=== PATIENT | male | born 1995 | race Caucasian/White ===

== ENCOUNTER 2018-06-24 12:37 | Inpatient (IN) | payer BC ==
[2018-06-24] MEDS ORDERED: NA CHLORIDE 0.9% 1,000 ML ONE ×3 (12:50→14:46)
[2018-06-24 12:58] LABS: Absolute Lymphocytes (CBC) 1.9 K/uL (0.7-4.9); Absolute Monocytes 0.6 K/uL (0.1-1.3); Absolute Neutrophil 8.3 K/uL (1.8-8.0); Basophils % 0.1 % (0-1.3); Eosinophils % 0.1 % (0-4.4); Hematocrit 45.1 % (39.6-49.0); Lymphocytes % 17.6 % (15.3-44.8); MCH 30.7 pg (27.0-35.0); MCV 93.4 fL (80-100); MPV 8.4 fL (7.6-11.3); Monocytes % 5.3 % (3.3-12.3); RBC Red Blood Cell Count 4.83 M/uL (4.33-5.43)
[2018-06-24 13:16] LABS: Arterial Blood Carboxyhemoglob 1.2 % (0-1.5); Blood Gas Oxyhemoglobin 94.3 % (94-97); Blood O2 Saturation 96.8 % (92-98.5)
[2018-06-24 13:31] LABS: ALT/SGPT 17 U/L (12-78); AST/SGOT 16 U/L (15-37); Albumin 4.4 g/dL (3.4-5.0); Alkaline Phosphatase 124 U/L (45-117); Amylase Level 13 U/L (25-115); BUN Blood Urea Nitrogen 16 mg/dL (7-18); Bilirubin Direct < 0.1 mg/dL (0-0.2); Bilirubin Total 0.7 mg/dL (0.2-1.0); Lipase 40 U/L (73-393); Potassium 4.8 mmol/L (3.5-5.1); Protein, Total 8.3 g/dL (6.4-8.2); Sodium Level 137 mmol/L (136-145)
[2018-06-24 13:38] LABS: Bicarbonate 8 mmol/L (21-32)
[2018-06-24 13:39] LABS: Glucose Level 466 mg/dL (74-106)
[2018-06-24] MEDS ORDERED: MORPHINE 4 MG/ML SYR ONE (13:39)
[2018-06-24] MEDS ORDERED: ONDANSETRON 4 MG/2 ML VIAL ONE (13:39)
[2018-06-24] MEDS ORDERED: INSULIN -REGULAR HUMAN 100 UNIT in NA CHLORIDE 0.9% 100 ML IV SCH ×2 (14:00→17:06)
--- NOTE | 2018-06-24 14:05 | RAD REPORT ---
EXAM DESCRIPTION: Tomasz Single View06/24/2018 1:50 pm CLINICAL HISTORY: Chest pain COMPARISON: December 2017 FINDINGS: The lungs appear clear of acute infiltrate. The heart is normal size IMPRESSION: No acute abnormalities displayed
--- NOTE | 2018-06-24 14:26 | EDPHYS ---
Physician Documentation [facility] Name: Frandy Bro Age: 22 yrs Sex: Male : 1995 Arrival Date: 06/24/2018 Time: 12:43 Bed 2 Private MD: ED Physician Matthew Zepeda HPI: 06/24 13:01 This 22 yrs old Male presents to ER via EMS with complaints of hyperglycemia, kb n/v. 13:01 The patient or guardian reports hyperglycemia, that was potentially precipitated by no kb particular event, Treatment prior to arrival includes: taking additional insulin. Onset: The symptoms/episode began/occurred yesterday. Associated signs and symptoms: Pertinent positives: nausea, vomiting. Current symptoms: In the emergency department the patient's symptoms are unchanged from the initial presentation. The patient has experienced similar episodes in the past, a few times. The patient has not recently seen a physician. Pt states he took a nap yesterday and woke up feeling bad. States he has been sleeping a lot since then. Took insulin because his sugar has been reading high since yesterday, but it doesn't seem to be going down. Reports he has been in DKA before but he feels worse than he did then. Historical: - Allergies: 12:58 No Known Allergies; ss - PMHx: 12:58 Diabetes - IDDM; ss - PSHx: 12:58 None; ss - Immunization history:: Adult Immunizations unknown. - Social history:: Smoking status: Patient/guardian denies using tobacco, Patient/guardian denies using street drugs. - Ebola Screening: : Patient denies exposure to infectious person Patient denies travel to an Ebola-affected area in the 21 days before illness onset. ROS: 13:00 ENT: Negative for injury, pain, and discharge, Neck: Negative for injury, pain, and kb swelling, Cardiovascular: Negative for chest pain, palpitations, and edema, Respiratory: Negative for shortness of breath, cough, wheezing, and pleuritic chest pain, Back: Negative for injury and pain, : Negative for injury, bleeding, discharge, and swelling, MS/Extremity: Negative for injury and deformity, Skin: Negative for injury, rash, and discoloration, Neuro: Negative for headache, weakness, numbness, tingling, and seizure. 13:00 Constitutional: Positive for fatigue, malaise. 13:00 Abdomen/GI: Positive for nausea and vomiting. 13:00 Endocrine: Positive for hyperglycemia. Exam: 13:00 Head/Face: Normocephalic, atraumatic. ENT: Nares patent. No nasal discharge, no kb septal abnormalities noted. Tympanic membranes are normal and external auditory canals are clear. Oropharynx with no redness, swelling, or masses, exudates, or evidence of obstruction, uvula midline. Mucous membranes moist. Neck: Trachea midline, no thyromegaly or masses palpated, and no cervical lymphadenopathy. Supple, full range of motion without nuchal rigidity, or vertebral point tenderness. No Meningismus. Chest/axilla: Normal chest wall appearance and motion. Nontender with no deformity. No lesions are appreciated. Cardiovascular: Regular rate and rhythm with a normal S1 and S2. No gallops, murmurs, or rubs. Normal PMI, no JVD. No pulse deficits. Respiratory: Lungs have equal breath sounds bilaterally, clear to auscultation and percussion. No rales, rhonchi or wheezes noted. No increased work of breathing, no retractions or nasal flaring. Abdomen/GI: Soft, non-tender, with normal bowel sounds. No distension or tympany. No guarding or rebound. No evidence of tenderness throughout. Skin: Warm, dry with normal turgor. Normal color with no rashes, no lesions, and no evidence of cellulitis. MS/ Extremity: Pulses equal, no cyanosis. Neurovascular intact. Full, normal range of motion. Neuro: Awake and alert, GCS 15, oriented to person, place, time, and situation. Cranial nerves II-XII grossly intact. Motor strength 5/5 in all extremities. Sensory grossly intact. Cerebellar exam normal. Normal gait. 13:00 Constitutional: The patient appears alert, awake, pale, uncomfortable. 13:00 Cardiovascular: Rate: tachycardic. 13:04 ECG was reviewed by the Attending Physician. kb Vital Signs: 12:40 BP 136 / 83; Pulse 145; Resp 26; Temp 98.0(TE); Pulse Ox 99% on R/A; Weight 54.43 kg; ss Height 5 ft. 6 in. (167.64 cm); Pain 10/10; 13:06 BP 142 / 73; Pulse 143; Resp 24; Pulse Ox 100% on R/A; ss 15:35 BP 130 / 73; Pulse 119; Resp 22; Pulse Ox 100% ; jb1 16:30 BP 124 / 74; Pulse 108; Resp 16; Pulse Ox 100% on R/A; Pain 0/10; ss 12:40 Body Mass Index 19.37 (54.43 kg, 167.64 cm) ss MDM: 12:43 Patient medically screened. kb 13:01 Data reviewed: vital signs, nurses notes. Data interpreted: Pulse oximetry: on room air kb is 99 %. Interpretation: normal. 14:13 Counseling: I had a detailed discussion with the patient and/or guardian regarding: the kb historical points, exam findings, and any diagnostic results supporting the discharge/admit diagnosis, lab results, radiology results, the need for further work-up and treatment in the hospital. Physician consultation: Claire Weinberg MD was contacted at 14:13, regarding admission, to the ICU, and will see patient in ED, shortly. 06/24 12:44 Order name: Amylase, Serum; Complete Time: 14:09 kb 06/24 12:44 Order name: Basic Metabolic Panel; Complete Time: 14:09 kb 06/24 12:44 Order name: CBC with Diff; Complete Time: 13:03 kb 06/24 12:44 Order name: Hepatic Function; Complete Time: 14:09 kb 06/24 12:44 Order name: Lipase; Complete Time: 14:09 kb 06/24 12:44 Order name: Acetone, Serum; Complete Time: 14:09 kb 06/24 12:44 Order name: ABG; Complete Time: 13:26 kb 06/24 13:27 Order name: Blood Culture Adult (2) kb 06/24 13:27 Order name: Lactate; Complete Time: 14:52 kb 06/24 13:50 Order name: Chest Single View; Complete Time: 14:09 EDMS 06/24 13:57 Order name: Glucose, Ancillary Testing; Complete Time: 14:09 EDMS 06/24 15:13 Order name: Urine Dipstick--Ancillary (enter results) bd 06/24 15:32 Order name: Urine Dipstick-Ancillary; Complete Time: 15:32 EDMS 06/24 12:44 Order name: IV Saline Lock; Complete Time: 12:53 kb 06/24 12:44 Order name: Labs collected and sent; Complete Time: 12:53 kb 06/24 12:44 Order name: Urine Dipstick-Ancillary (obtain specimen); Complete Time: 15:09 kb 06/24 12:44 Order name: EKG; Complete Time: 12:45 kb 06/24 12:44 Order name: EKG - Nurse/Tech; Complete Time: 12:53 kb EC:04 Rate is 140 beats/min. Rhythm is regular, Sinus tachycardia. QRS [place] is Normal. DE kb interval is normal at 142 msec. QRS interval is normal at 76 msec. Clinical impression: Sinus tachycardia. Administered Medications: Discontinued: NS 0.9% 1000 ml IV at 150 ml/hr continuous 12:45 CANCELLED (Duplicate Order): NS 0.9% 1000 ml IV at 125 ml/hr continuous kb 12:50 Drug: NS 0.9% 1000 ml Route: IV; Rate: 1000 ml; Site: left antecubital; ss 13:23 Follow up: IV Status: Completed infusion; IV Intake: 1000ml 13:23 Drug: NS 0.9% 1000 ml Route: IV; Rate: 1000 ml; Site: left antecubital; ss 14:51 Follow up: IV Status: Completed infusion; IV Intake: 1000ml ss 13:39 Drug: morphine 2 mg Route: IVP; Site: left antecubital; ss 14:26 Follow up: Response: No adverse reaction ss 13:39 Drug: Zofran 4 mg Route: IVP; Site: left antecubital; ss 14:26 Follow up: Response: No adverse reaction ss 14:12 Drug: Insulin Drip - (Insulin Regular Human 100 units, NS 0.9% 100 ml) {Co-Signature: [facility] (Reinaldo Garvin RN).} Route: IV; Rate: calculated rate; Site: left antecubital; 14:53 Follow up: IV Status: Infusion continued upon admission ss 16:14 Follow up: changed rate from 5 units/hr to 2.5 units per hour. current BGL 154 ss 14:51 Drug: NS 0.9% 1000 ml Route: IV; Rate: 150 ml/hr; Site: left antecubital; ss 14:54 Follow up: IV Status: Infusion continued upon admission ss 16:30 Drug: D5W 1000 ml Route: IV; Rate: 150 ml/hr; Site: left antecubital; ss 17:18 Follow up: IV Status: Infusion continued upon admission Point of Care Testing: Blood Glucose: 12:40 Blood Glucose: 412 mg/dL; ss 14:04 Blood Glucose: 357 mg/dL; jb1 15:12 Blood Glucose: 256 mg/dL; ss 16:14 Blood Glucose: 154 mg/dL; ss Ranges: Critical Glucose Levels:Adult <50 mg/dl or >400 mg/dl <40 mg/dl or >180 mg/dl Disposition: 06/25 07:04 Co-signature as Attending Physician, Matthew Zepeda MD I agree with the assessment and [facility] plan of care. Disposition: 06/24/18 14:25 Hospitalization ordered by Claire Weinberg for Inpatient Admission. Preliminary diagnosis is Type 1 diabetes mellitus with ketoacidosis. - Bed requested for Intensive Care Unit. - Status is Inpatient Admission. ss - Condition is Stable. - Problem is new. - Symptoms are unchanged. UTI on Admission? No Signatures: Dispatcher [employer] [facility] Liz Cabrera, JAMES-C LOAN DOCUMENTS CLOSER-Екатерина Hwang Corey, MD MD cha Williams, Irene, RN RN Francesca Lucero RN RN Reinaldo Garvin RN sg Corrections: (The following items were deleted from the chart) 06/24 12:45 12:44 NS 0.9% 1000 ml IV at 125 ml/hr continuous ordered. kb kb 13:11 13:04 Rate is 140 beats/min. Rhythm is regular, Sinus tachycardia. Clinical impression: kb Sinus tachycardia. kb 13:50 13:21 Chest Pa And Lat (2 Views)+[email or web address] ordered. [facility] EDMO 16:49 14:25 Hospitalization Ordered by Claire Weinberg MD for Inpatient Admission. Preliminary bd diagnosis is Type 1 diabetes mellitus with ketoacidosis. Bed requested for Intensive Care Unit. Status is Inpatient Admission. Condition is Stable. Problem is new. Symptoms are unchanged. UTI on Admission? No. kb 17:19 16:49 06/24/2018 14:25 Hospitalization Ordered by Claire Weinberg MD for Inpatient ss Admission. Preliminary diagnosis is Type 1 diabetes mellitus with ketoacidosis. Bed requested for Intensive Care Unit. Status is Inpatient Admission. Condition is Stable. Problem is new. Symptoms are unchanged. UTI on Admission? No. bd
--- NOTE | 2018-06-24 14:26 | ER ---
Nurse's Notes [facility] Name: Frandy Bro Age: 22 yrs Sex: Male : 1995 Arrival Date: 06/24/2018 Time: 12:43 Bed 2 Private MD: Diagnosis: Type 1 diabetes mellitus with ketoacidosis Presentation: 06/24 12:48 Presenting complaint: EMS states: high blood sugar readings since yesterday and ss fatigue. Pt reports N/V and again high blood sugar readings today despite attempting to correct with insulin. Transition of care: patient was not received from another setting of care. Onset of symptoms was May 23, 2018. Risk Assessment: Do you want to hurt yourself or someone else? Patient reports no desire to harm self or others. Initial Sepsis Screen: Does the patient meet any 2 criteria? RR > 20 per min. HR > 90 bpm. Does the patient have a suspected source of infection? No. Patient's initial sepsis screen is negative. Care prior to arrival: Medication(s) given: Normal saline infusion, 500 mL, zofran 4 mg, IV initiated. 20 GA, in the left antecubital area, Glucose check: 433. 12:48 Method Of Arrival: EMS: [facility] ss 12:48 Acuity: JACLYN 2 ss Historical: - Allergies: 12:58 No Known Allergies; ss - PMHx: 12:58 Diabetes - IDDM; ss - PSHx: 12:58 None; ss - Immunization history:: Adult Immunizations unknown. - Social history:: Smoking status: Patient/guardian denies using tobacco, Patient/guardian denies using street drugs. - Ebola Screening: : Patient denies exposure to infectious person Patient denies travel to an Ebola-affected area in the 21 days before illness onset. Screenin:06 Abuse screen: Denies threats or abuse. Denies injuries from another. Nutritional ss screening: No deficits noted. Tuberculosis screening: Never had TB. Fall Risk No fall in past 12 months (0 pts). Assessment: 12:48 General: Appears distressed, uncomfortable, Behavior is calm, cooperative, Smells of ss ketones, Reports feeling ill for fatigue for last night that began this morning. Denies fever. Pain: Complains of pain in chest Pain currently is 10 out of 10 on a pain scale. Quality of pain is described as aching, Pain began this morning Is continuous. Neuro: Level of Consciousness is awake, alert, obeys commands, Oriented to person, place, time, situation, Land Survey Technician are equal bilaterally Speech is normal, Facial symmetry appears normal, Pupils are PERRLA. Cardiovascular: Reports chest pain, shortness of breath, Heart tones S1 S2 present Capillary refill < 3 seconds is brisk in bilateral fingers Patient's skin is warm and dry. Rhythm is sinus tachycardia. Respiratory: Airway is patent Respiratory effort is even, labored, Respiratory pattern is regular, Breath sounds are clear bilaterally. Respiratory: Reports shortness of breath on exertion. GI: Reports nausea, vomiting, since this morning. : No signs and/or symptoms were reported regarding the genitourinary system. EENT: Nares are clear Throat is clear. Derm: Skin is pink, warm \T\ dry. Musculoskeletal: Circulation, motion, and sensation intact. Range of motion: intact in all extremities, Swelling. Vital Signs: 12:40 BP 136 / 83; Pulse 145; Resp 26; Temp 98.0(TE); Pulse Ox 99% on R/A; Weight 54.43 kg; ss Height 5 ft. 6 in. (167.64 cm); Pain 10/10; 13:06 BP 142 / 73; Pulse 143; Resp 24; Pulse Ox 100% on R/A; ss 15:35 BP 130 / 73; Pulse 119; Resp 22; Pulse Ox 100% ; jb1 16:30 BP 124 / 74; Pulse 108; Resp 16; Pulse Ox 100% on R/A; Pain 0/10; ss 12:40 Body Mass Index 19.37 (54.43 kg, 167.64 cm) ED Course: 12:40 Arm band placed on right wrist. ss 12:43 Patient arrived in ED. ss 12:43 Liz Cabrera FNP-C is PHCP. kb 12:43 Matthew Zepeda MD is Attending Physician. kb 12:52 Francesca Lucero RN is Primary Nurse. ss 12:56 Triage completed. ss 13:00 EKG done, by fuel verification technician. reviewed by Matthew Zepeda MD. dt2 13:06 Patient has correct armband on for positive identification. Side rails up X 1. Cardiac ss monitor on. Pulse ox on. NIBP on. 13:06 Maintain EMS IV. Dressing intact. Good blood return noted. Site clean \T\ dry. Gauge \T\ ss site: 20 gauge to L AC. 13:36 Notified ED physician of a critical lab result(s). cO2 8, glucose 466. ss 13:50 Chest Single View In Process Unspecified. EDMS 14:06 Inserted saline lock: 20 gauge in right antecubital area, using aseptic technique. ss Blood collected. Patient maintains SpO2 saturation greater than 95% on room air. 14:24 Claire Weinberg MD is Hospitalizing Provider. kb 17:17 No provider procedures requiring assistance completed. Patient admitted, IV remains in ss place. Administered Medications: Discontinued: NS 0.9% 1000 ml IV at 150 ml/hr continuous 12:45 CANCELLED (Duplicate Order): NS 0.9% 1000 ml IV at 125 ml/hr continuous kb 12:50 Drug: NS 0.9% 1000 ml Route: IV; Rate: 1000 ml; Site: left antecubital; ss 13:23 Follow up: IV Status: Completed infusion; IV Intake: 1000ml ss 13:23 Drug: NS 0.9% 1000 ml Route: IV; Rate: 1000 ml; Site: left antecubital; ss 14:51 Follow up: IV Status: Completed infusion; IV Intake: 1000ml ss 13:39 Drug: morphine 2 mg Route: IVP; Site: left antecubital; ss 14:26 Follow up: Response: No adverse reaction ss 13:39 Drug: Zofran 4 mg Route: IVP; Site: left antecubital; ss 14:26 Follow up: Response: No adverse reaction ss 14:12 Drug: Insulin Drip - (Insulin Regular Human 100 units, NS 0.9% 100 ml) {Co-Signature: [facility] (Reinaldo Garvin RN).} Route: IV; Rate: calculated rate; Site: left antecubital; 14:53 Follow up: IV Status: Infusion continued upon admission ss 16:14 Follow up: changed rate from 5 units/hr to 2.5 units per hour. current BGL 154 ss 14:51 Drug: NS 0.9% 1000 ml Route: IV; Rate: 150 ml/hr; Site: left antecubital; ss 14:54 Follow up: IV Status: Infusion continued upon admission ss 16:30 Drug: D5W 1000 ml Route: IV; Rate: 150 ml/hr; Site: left antecubital; ss 17:18 Follow up: IV Status: Infusion continued upon admission Point of Care Testing: Blood Glucose: 12:40 Blood Glucose: 412 mg/dL; ss 14:04 Blood Glucose: 357 mg/dL; jb1 15:12 Blood Glucose: 256 mg/dL; ss 16:14 Blood Glucose: 154 mg/dL; ss Ranges: Intake: 13:23 IV: 1000ml; Total: 1000ml. ss 14:51 IV: 1000ml; Total: 2000ml. Outcome: 14:25 Decision to Hospitalize by Provider. kb 17:17 Admitted to ICU accompanied by nurse, accompanied by tech, via stretcher, room 2, on monitor, with chart, Report called to Nikki Yee RN 17:17 Condition: stable 17:17 Instructed on the need for admit. 17:19 Patient left the ED. Signatures: Dispatcher [employer] EDMS John Delacruz jb1 Liz Cabrera, BICYCLE RENTAL CLERK-C BICYCLE RENTAL CLERK-Francesca Platt RN RN Eva Masterson2 Reinaldo Garvin RN sg Corrections: (The following items were deleted from the chart) 13:25 12:48 General: Appears distressed, uncomfortable, Behavior is calm, cooperative, ss Reports feeling ill for fatigue for last night that began this morning. Denies fever, ss
[2018-06-24 15:32] LABS: Urine Blood NEGATIVE (NEG); Urine Glucose 2+ (NEG); Urine Protein NEGATIVE (NEG); Urine pH 5.5 (5.0-7.0)
[2018-06-24] MEDS: NACHLORIDE 0.45% 1,000 ML IV SCH (17:06)
[2018-06-24 17:44] VITALS: BMI 18.8
--- NOTE | 2018-06-24 18:05 | P.HP ---
Certification for Inpatient Patient admitted to: Inpatient With expected LOS: >2 Midnights Patient will require the following post-hospital care: None Practitioner: I am a practitioner with admitting privileges, knowledge of patient current condition, hospital course, and medical plan of care. Services: Services provided to patient in accordance with Admission requirements found in Title 42 Section 412.3 of the Code of Federal Regulations Patient History Date of Service: 06/27/18 Primary Care Provider: Dr Dominguez Reason for admission: Hyperglycemia History of Present Illness: This is a 22-year-old male with significant past medical history of diabetes type 2 who presented to the ED with complaints of dehydration nausea vomiting. Patient was found to have DKA in the ER and thus was admitted for further workup. Patient stated that he has been out in the sun a and certainly started having nausea and vomiting. Patient stated that he has been taking adequate intake of fluid however because of the heat he thought that he was dehydrated. Patient has been compliant with his medication however he has been taking insulin on sliding scale. Patient has not been placed on a scheduled dose of insulin in the morning or at night time. Patient has been doing carb counting as per his barrel rifler recommendation. Allergies No Known Allergies Allergy (Verified 12/18/17 16:21) Home Medications: Insulin Glargine Human [Lantus*] 15 - 20 unit SQ ACHS #30 ml 06/27/18 - Past Medical/Surgical History Has patient received pneumonia vaccine in the past: No Diabetic: Yes -: Diabetes mellitus type 1 -: History of DKA -: History of PVCs -: abscess left forearm -: broke wrist -: Wrist surgery Psychosocial/ Personal History: The patient is single. He has no child. He works at a local [employer]. - Family History Mother -: Other (see notes) Notes: Thyroid; Migraines - Social History Smoking Status: Never smoker Alcohol use: Yes CD- Drugs: No Caffeine use: Yes Place of Residence: Home Review of Systems General: As per HPI Physical Examination - Vital Signs Temperature: 98.0 F Blood Pressure: 116/73 Pulse: 102 Respirations: 16 - Physical Exam General: Alert, In no apparent distress HEENT: Atraumatic, PERRLA, Mucous membr. moist/pink, EOMI, Sclerae nonicteric Neck: Supple, 2+ carotid pulse no bruit, No LAD, Without JVD or thyroid abnormality Respiratory: Clear to auscultation bilaterally, Normal air movement Cardiovascular: Regular rate/rhythm, Normal S1 S2 Gastrointestinal: Normal bowel sounds, No tenderness Musculoskeletal: No tenderness Integumentary: No rashes Neurological: Normal gait, Normal speech, Normal strength at 5/5 x4 extr, Normal tone, Normal affect Lymphatics: No axilla or inguinal lymphadenopathy - Studies Laboratory Data (last 24 hrs) 06/24/18 12:47: WBC 10.7, Hgb 14.8, Hct 45.1, Plt Count 358 06/24/18 12:47: Sodium 137, Potassium 4.8, BUN 16, Creatinine 1.60 H, Glucose 466 H*, Total Bilirubin 0.7, AST 16, ALT 17, Alkaline Phosphatase 124 H, Amylase 13 L, Lipase 40 L Assessment and Plan - Problems (Diagnosis) (1) Diabetic ketoacidosis Onset Date: 02/06/16 Status: Acute Plan: DKA with Anion gap of 29 -Insulin ggt -Iv fluids D5W at 150ml/hr -replace electrolytes -BMP, Acetone level q4h -DC ggt once gap closed and basal insulin started Qualifiers: Diabetes mellitus type: type 1 Diabetes mellitus complication detail: without coma Qualified Code(s): E10.10 - Type 1 diabetes mellitus with ketoacidosis without coma (2) Diabetes type 1, uncontrolled Onset Date: 04/15/15 Status: Chronic Plan: Insulin dependent -See # 1 Qualifiers: Glycemic state: with hyperglycemia Qualified Code(s): E10.65 - Type 1 diabetes mellitus with hyperglycemia (3) Nausea & vomiting Onset Date: 07/09/16 Status: Resolved Plan: Intractable N/V due to DKA -IV fluids and zofran for now Qualifiers: Vomiting type: unspecified Vomiting Intractability: intractable Qualified Code(s): R11.2 - Nausea with vomiting, unspecified Discharge Plan: Home Plan to discharge in: 48 Hours - Advance Directives Does patient have a Living Will: No Does patient have a Durable POA for Healthcare: No - Code Status/Comfort Care Code Status Assessed: Yes Critical Care: No
[2018-06-24 18:23] LABS: Urine Appearance CLEAR; Urine Bilirubin NEGATIVE (NEG); Urine Blood NEGATIVE (NEG); Urine Color YELLOW; Urine Glucose 3+ (NEG); Urine Protein TRACE (NEG); Urine Specific Gravity 1.025 (1.005-1.030); Urine Urobilinogen 0.2 mg/dL (0.2-1.0); Urine pH 5.5 (5.0-7.0)
[2018-06-24 18:34] LABS: BUN Blood Urea Nitrogen 10 mg/dL (7-18); Glucose Level 147 mg/dL (74-106); Potassium 4.4 mmol/L (3.5-5.1); Sodium Level 138 mmol/L (136-145)
[2018-06-24 18:35] LABS: Bicarbonate 10 mmol/L (21-32)
[2018-06-24 18:36] LABS: Urine Microscopic Reflex NO UMIC
[2018-06-24] MEDS: ONDANSETRON 4 MG/2 ML VIAL IV PRN (20:19)
[2018-06-24] MEDS: D5W 1,000 ML IV SCH (20:22)
[2018-06-24] MEDS ORDERED: MORPHINE 4 MG/ML SYR IV PRN (20:56)
--- NOTE | 2018-06-24 21:11 | EKG ---
Test Date: 2018-06-24 Test Time: 12:54:17 Newspaper Reporter: DONA MEASUREMENT RESULTS: Intervals: Rate: 140 ID: [id number] QRSD: 76 QT: 286 QTc: 436 Spencer: P: 72 ID: [id number] QRS: 73 T: 69 INTERPRETIVE STATEMENTS: Sinus tachycardia Right atrial enlargement Borderline ECG Compared to ECG 12/18/2017 09:42:43 Atrial abnormality now present Electronically Signed On 06-24-18 21:11:02 CDT by Igor Rust
[2018-06-24 21:33] LABS: BUN Blood Urea Nitrogen 8 mg/dL (7-18); Bicarbonate 16 mmol/L (21-32); Glucose Level 126 mg/dL (74-106); Potassium 3.9 mmol/L (3.5-5.1); Sodium Level 138 mmol/L (136-145)
[2018-06-24] MEDS ORDERED: KCL 20 MEQ/100 mL IVPB 20 MEQ/100 ML BAG IV SCH (23:00)
[2018-06-25 01:39] LABS: BUN Blood Urea Nitrogen 7 mg/dL (7-18); Bicarbonate 20 mmol/L (21-32); Glucose Level 106 mg/dL (74-106); Sodium Level 137 mmol/L (136-145)
[2018-06-25] MEDS: D5W 1,000 ML IV SCH ×4 (01:53→16:29)
[2018-06-25] MEDS: NACHLORIDE 0.45% 1,000 ML IV SCH (02:11)
[2018-06-25 05:07] LABS: Absolute Lymphocytes (CBC) 2.5 K/uL (0.7-4.9); Absolute Neutrophil 5.6 K/uL (1.8-8.0); Basophils % 0.3 % (0-1.3); Eosinophils % 1.2 % (0-4.4); Lymphocytes % 27.1 % (15.3-44.8); MCH 30.9 pg (27.0-35.0); MCV 89.1 fL (80-100); MPV 7.7 fL (7.6-11.3); Monocytes % 10.7 % (3.3-12.3); RBC Red Blood Cell Count 4.04 M/uL (4.33-5.43)
[2018-06-25 05:15] LABS: BUN Blood Urea Nitrogen 6 mg/dL (7-18); Bicarbonate 22 mmol/L (21-32); Glucose Level 113 mg/dL (74-106); Magnesium 1.9 mg/dL (1.8-2.4); Phosphorus 2.6 mg/dL (2.5-4.9); Potassium 3.4 mmol/L (3.5-5.1); Sodium Level 137 mmol/L (136-145)
[2018-06-25] MEDS: KCL 20 MEQ/100 mL IVPB 20 MEQ/100 ML BAG IV SCH ×2 (06:36→08:13)
[2018-06-25] MEDS: ENOXAPARIN 40 MG/0.4 ML SQ SCH (08:13)
[2018-06-25 10:15] LABS: BUN Blood Urea Nitrogen 5 mg/dL (7-18); Bicarbonate 21 mmol/L (21-32); Glucose Level 124 mg/dL (74-106); Sodium Level 137 mmol/L (136-145)
[2018-06-25 13:44] LABS: BUN Blood Urea Nitrogen 4 mg/dL (7-18); Bicarbonate 21 mmol/L (21-32); Glucose Level 181 mg/dL (74-106); Potassium 3.5 mmol/L (3.5-5.1); Sodium Level 139 mmol/L (136-145)
--- NOTE | 2018-06-25 15:02 | P.PN ---
Subjective Date of Service: 06/25/18 Chief Complaint: Hyperglycemia Subjective: No C/O voiced, Improving, Working w/ PT, Doing well Review of Systems General: As per HPI Physical Examination - Vital Signs Temperature: 98.5 F Blood Pressure: 93/75 Pulse: 79 Respirations: 11 Pulse Ox (%): 98 - Physical Exam General: Alert, In no apparent distress HEENT: Atraumatic, PERRLA, EOMI Neck: Supple, JVD not distended Respiratory: Clear to auscultation bilaterally, Normal air movement Cardiovascular: Regular rate/rhythm, Normal S1 S2 Gastrointestinal: Normal bowel sounds, No tenderness Musculoskeletal: No tenderness Integumentary: No rashes Neurological: Normal speech, Normal tone, Normal affect Lymphatics: No axilla or inguinal lymphadenopathy - Studies Medications List Reviewed: Yes Assessment & Plan - Problems (Diagnosis) (1) Diabetic ketoacidosis Onset Date: 02/06/16 Current Visit: No Status: Acute Plan: DKA with Anion gap of 29 in ED -Anion gap this AM is 9 still with small Ketones -Insulin ggt -Iv fluids D5W at 150ml/hr -replace electrolytes -BMP, Acetone level q4h -DC ggt once gap closed and basal insulin started Qualifiers: Diabetes mellitus type: type 1 Diabetes mellitus complication detail: without coma Qualified Code(s): E10.10 - Type 1 diabetes mellitus with ketoacidosis without coma (2) Diabetes type 1, uncontrolled Onset Date: 04/15/15 Current Visit: No Status: Chronic Plan: Insulin dependent -See # 1 Qualifiers: Glycemic state: with hyperglycemia Qualified Code(s): E10.65 - Type 1 diabetes mellitus with hyperglycemia (3) Nausea & vomiting Onset Date: 07/09/16 Current Visit: No Status: Acute Plan: Intractable N/V due to DKA -IV fluids and zofran for now -Improving Qualifiers: Vomiting type: unspecified Vomiting Intractability: intractable Qualified Code(s): R11.2 - Nausea with vomiting, unspecified Discharge Plan: Home Plan to discharge in: 24 Hours - Code Status/Comfort Care Code Status Assessed: Yes Critical Care: No
[2018-06-25 17:27] LABS: BUN Blood Urea Nitrogen 3 mg/dL (7-18); Bicarbonate 21 mmol/L (21-32); Glucose Level 243 mg/dL (74-106); Sodium Level 137 mmol/L (136-145)
[2018-06-25 21:47] LABS: BUN Blood Urea Nitrogen 7 mg/dL (7-18); Bicarbonate 23 mmol/L (21-32); Glucose Level 104 mg/dL (74-106); Potassium 3.4 mmol/L (3.5-5.1); Sodium Level 138 mmol/L (136-145)
[2018-06-26 01:58] LABS: BUN Blood Urea Nitrogen 10 mg/dL (7-18); Bicarbonate 23 mmol/L (21-32); Glucose Level 173 mg/dL (74-106); Potassium 3.4 mmol/L (3.5-5.1); Sodium Level 138 mmol/L (136-145)
[2018-06-26] MEDS ORDERED: POTASSIUM CL SA 10 MEQ TAB PO ONE ×3 (02:20→15:42)
[2018-06-26] MEDS: D5W 1,000 ML IV SCH (02:54)
[2018-06-26 06:13] LABS: Absolute Lymphocytes (CBC) 2.4 K/uL (0.7-4.9); Absolute Monocytes 0.4 K/uL (0.1-1.3); Absolute Neutrophil 1.7 K/uL (1.8-8.0); Basophils % 0.6 % (0-1.3); Eosinophils % 3.6 % (0-4.4); Hematocrit 37.1 % (39.6-49.0); Lymphocytes % 50.4 % (15.3-44.8); MCH 30.4 pg (27.0-35.0); MCV 88.6 fL (80-100); MPV 8.1 fL (7.6-11.3); Monocytes % 9.1 % (3.3-12.3); RBC Red Blood Cell Count 4.19 M/uL (4.33-5.43)
[2018-06-26 06:28] LABS: BUN Blood Urea Nitrogen 10 mg/dL (7-18); Bicarbonate 24 mmol/L (21-32); Glucose Level 78 mg/dL (74-106); Magnesium 1.8 mg/dL (1.8-2.4); Phosphorus 2.8 mg/dL (2.5-4.9); Potassium 3.6 mmol/L (3.5-5.1); Sodium Level 140 mmol/L (136-145)
[2018-06-26] MEDS ORDERED: GLUCAGON 1 MG/VIAL IM PRN (06:59)
[2018-06-26] MEDS ORDERED: D50W 25 GM/50 ML SYRINGE IV PRN (06:59)
[2018-06-26] MEDS ORDERED: INSULIN GLARGINE 100 UNITS/ML SQ ONE (07:02)
[2018-06-26] MEDS: NA CHLORIDE 0.9% 1,000 ML IV SCH ×2 (07:29→21:24)
[2018-06-26] MEDS: ENOXAPARIN 40 MG/0.4 ML SQ SCH (09:00)
[2018-06-26] MEDS ORDERED: INSULIN -REGULAR HUMAN 50 UNIT/0.5 ML ML SQ SCH (11:30)
--- NOTE | 2018-06-26 13:38 | P.PN ---
Subjective Date of Service: 06/26/18 Chief Complaint: Hyperglycemia Subjective: No C/O voiced, Tolerating diet, Ambulating, Working w/ PT, Doing well Review of Systems General: As per HPI Physical Examination - Vital Signs Temperature: 98 F Blood Pressure: 98/53 Pulse: 72 Respirations: 17 Pulse Ox (%): 98 - Physical Exam General: Alert, In no apparent distress HEENT: Atraumatic, PERRLA, EOMI Neck: Supple, JVD not distended Respiratory: Clear to auscultation bilaterally, Normal air movement Cardiovascular: Regular rate/rhythm, Normal S1 S2 Gastrointestinal: Normal bowel sounds, No tenderness Musculoskeletal: No tenderness Integumentary: No rashes Neurological: Normal speech, Normal tone, Normal affect Lymphatics: No axilla or inguinal lymphadenopathy - Studies Medications List Reviewed: Yes Assessment & Plan - Problems (Diagnosis) (1) Diabetic ketoacidosis Onset Date: 02/06/16 Current Visit: No Status: Acute Plan: DKA with Anion gap of 29 in ED. Now resolved -Basal Insulin with Mod Sliding scale. -Observe for 24hrs and adjust insulin according for Discharge Qualifiers: Diabetes mellitus type: type 1 Diabetes mellitus complication detail: without coma Qualified Code(s): E10.10 - Type 1 diabetes mellitus with ketoacidosis without coma (2) Diabetes type 1, uncontrolled Onset Date: 04/15/15 Current Visit: No Status: Chronic Plan: Insulin dependent -See # 1 Qualifiers: Glycemic state: with hyperglycemia Qualified Code(s): E10.65 - Type 1 diabetes mellitus with hyperglycemia (3) Nausea & vomiting Onset Date: 07/09/16 Current Visit: No Status: Resolved Plan: Intractable N/V due to DKA -IV fluids and zofran for now -Improving Qualifiers: Vomiting type: unspecified Vomiting Intractability: intractable Qualified Code(s): R11.2 - Nausea with vomiting, unspecified Discharge Plan: Home Plan to discharge in: 24 Hours - Code Status/Comfort Care Code Status Assessed: Yes Critical Care: No
[2018-06-26] MEDS ORDERED: MAGNESIUM SULFATE 1 gm IVPB 1 GM/100 ML BAG IV ONE (15:42)
[2018-06-26] MEDS: INSULIN -REGULAR HUMAN 50 UNIT/0.5 ML ML SQ SCH ×2 (16:52→21:20)
[2018-06-27] MEDS: INSULIN -REGULAR HUMAN 50 UNIT/0.5 ML ML SQ SCH ×3 (04:50→11:30)
[2018-06-27] MEDS: ONDANSETRON 4 MG/2 ML VIAL IV PRN (04:52)
[2018-06-27 05:12] LABS: Absolute Lymphocytes (CBC) 1.7 K/uL (0.7-4.9); Absolute Monocytes 0.5 K/uL (0.1-1.3); Basophils % 0.5 % (0-1.3); Eosinophils % 3.3 % (0-4.4); Hematocrit 37.5 % (39.6-49.0); MCH 31.3 pg (27.0-35.0); MCV 89.2 fL (80-100); MPV 8.9 fL (7.6-11.3); Monocytes % 10.8 % (3.3-12.3)
[2018-06-27 05:45] LABS: BUN Blood Urea Nitrogen 14 mg/dL (7-18); Bicarbonate 31 mmol/L (21-32); Magnesium 1.8 mg/dL (1.8-2.4); Phosphorus 3.1 mg/dL (2.5-4.9); Potassium 4.1 mmol/L (3.5-5.1); Sodium Level 137 mmol/L (136-145)
[2018-06-27 05:51] LABS: Glucose Level 417 mg/dL (74-106)
[2018-06-27] MEDS ORDERED: MAGNESIUM SULFATE 1 gm IVPB 1 GM/100 ML BAG IV ONE (06:08)
[2018-06-27] MEDS ORDERED: D50W 25 GM/50 ML SYRINGE IV PRN (06:17)
[2018-06-27] MEDS ORDERED: GLUCAGON 1 MG/VIAL IM PRN (06:17)
[2018-06-27] MEDS ORDERED: INSULIN DETEMIR 100 UNIT/1 ML INSULIN SQ ONE (06:18)
[2018-06-27] MEDS: ENOXAPARIN 40 MG/0.4 ML SQ SCH ×2 (09:00→09:13)
[2018-06-27] MEDS: INSULIN LISPRO 100 UNIT/1 ML SQ SCH ×2 (09:12→11:30)
[2018-06-27] MEDS: NA CHLORIDE 0.9% 1,000 ML IV SCH (09:12)
[2018-06-27 10:25] VITALS: O2SAT 99
--- NOTE | 2018-06-27 15:32 | P.DS ---
Admission Date: 06/24/18 Discharge Date: 06/27/18 Disposition: ROUTINE DISCHARGE Discharge Condition: GOOD Reason for Admission: Hyperglycemia - Problems (1) Diabetic ketoacidosis Onset Date: 02/06/16 Status: Acute Qualifiers: Diabetes mellitus type: type 1 Diabetes mellitus complication detail: without coma Qualified Code(s): E10.10 - Type 1 diabetes mellitus with ketoacidosis without coma (2) Diabetes type 1, uncontrolled Onset Date: 04/15/15 Status: Chronic Qualifiers: Glycemic state: with hyperglycemia Qualified Code(s): E10.65 - Type 1 diabetes mellitus with hyperglycemia (3) Nausea & vomiting Onset Date: 07/09/16 Status: Resolved Qualifiers: Vomiting type: unspecified Vomiting Intractability: intractable Qualified Code(s): R11.2 - Nausea with vomiting, unspecified Brief History of Present Illness: See HPI Hospital Course: The patient initially was admitted to the hospital for DKA. Was found to be dehydrated along with nausea and vomiting. Patient was placed on insulin drip along with fluids. Patient gap closed x2 and ketones were negative in the urine. Patient then was switched over to basal insulin. Patient was started on Lantus 24 units at bedtime and 12 units of the Humalog in morning. Patient' s blood sugars were controlled here in the hospital and patient was switched over to Lantus 15 in the morning and 20 at night time. Patient was asked to follow up with his pad extractor tender in about 1-2 days post discharge to adjust his insulin. Patient was also asked to check his blood sugar 5 times a day and keep a log to make appropriate adjustments to his insulin. Patient was also asked to follow up with the collar trimmer to understand proper diet and exercise for type 1 diabetics. Vital Signs/Physical Exam: Temp Pulse Resp BP Pulse Ox 98.8 F 65 16 116/57 L 99 06/27/18 12:00 06/27/18 12:00 06/27/18 12:00 06/27/18 12:00 06/27/18 12:00 General: Alert, In no apparent distress HEENT: Atraumatic, PERRLA, EOMI Neck: Supple, JVD not distended Respiratory: Clear to auscultation bilaterally, Normal air movement Cardiovascular: Regular rate/rhythm, Normal S1 S2 Gastrointestinal: Normal bowel sounds, No tenderness Musculoskeletal: No tenderness Integumentary: No rashes Neurological: Normal speech, Normal tone, Normal affect Lymphatics: No axilla or inguinal lymphadenopathy Laboratory Data at Discharge: WBC 4.4 K/uL (4.3-10.9) 06/27/18 04:18 Hgb 13.2 g/dL (13.6-17.9) L 06/27/18 04:18 Hct 37.5 % (39.6-49.0) L 06/27/18 04:18 Plt Count 205 K/uL (152-406) 06/27/18 04:18 Sodium 137 mmol/L (136-145) 06/27/18 04:18 Potassium 4.1 mmol/L (3.5-5.1) 06/27/18 04:18 BUN 14 mg/dL (7-18) 06/27/18 04:18 Creatinine 0.80 mg/dL (0.55-1.3) 06/27/18 04:18 Glucose 417 mg/dL (74-106) H* 06/27/18 04:18 Phosphorus 3.1 mg/dL (2.5-4.9) 06/27/18 04:18 Magnesium 1.8 mg/dL (1.8-2.4) 06/27/18 04:18 Total Bilirubin 0.7 mg/dL (0.2-1.0) 06/24/18 12:47 AST 16 U/L (15-37) 06/24/18 12:47 ALT 17 U/L (12-78) 06/24/18 12:47 Alkaline Phosphatase 124 U/L (45-117) H 06/24/18 12:47 Amylase 13 U/L (25-115) L 06/24/18 12:47 Lipase 40 U/L (73-393) L 06/24/18 12:47 Home Medications: Insulin Glargine Human [Lantus*] 15 - 20 unit SQ ACHS #30 ml 06/27/18 New Medications: Insulin Glargine Human [Lantus*] 15 - 20 unit SQ ACHS #30 ml Patient Discharge Instructions: Please f.u with Dr Dominguez and Dr Rincon from [employer] in 1 to 2 week post discharge. You are to discuss about insulin pump with pad extractor tender. New medication. Lantus 15 units in AM. Lantus 20 units in PM Diet: Regular Activity: Ad sherley
[2018-06-27 15:34] VITALS: BP 116/73; TEMP 98
[2018-06-27] MEDS ORDERED: INSULIN GLARGINE 100 UNITS/ML SQ SCH (21:00)
== END 2018-06-27 14:47 | disposition home or self-care (01) | DRG 639 ==
LOC: ER 12:37 → ERHOLD 14:44 → 3RD-ICU 17:01 → 2ND 06-26 14:15
PROVIDERS: ADMIT Family Medicine; ATTEND Family Medicine
DX: E10.10 Type 1 diabetes mellitus with ketoacidosis without coma (principal); E86.0 Dehydration; R11.2 Nausea with vomiting, unspecified
CPT/HCPCS: 36415; 71045; 80048; 80076; 81003; 82010; 82150; 82805; 82962; 83036; 83605; 83690; 83735; 83930; 84100; 85025; 87040; 93005; 96361; 96365; 96375; 99285; J1650; J2405; J3475; J7030; J7060

== ENCOUNTER 2018-11-11 22:45 | Inpatient (IN) | payer BC, SELFPAY ==
[2018-11-11] MEDS ORDERED: NA CHLORIDE 0.9% 1,000 ML ONE (23:39)
[2018-11-11] MEDS ORDERED: ONDANSETRON 4 MG/2 ML VIAL ONE (23:39)
[2018-11-11 23:50] LABS: Absolute Lymphocytes (CBC) 1.4 K/uL (0.7-4.9); Absolute Neutrophil 7.9 K/uL (1.8-8.0); Basophils % 0.3 % (0-1.3); Eosinophils % 0.2 % (0-4.4); Hematocrit 47.4 % (39.6-49.0); Lymphocytes % 13.5 % (15.3-44.8); MPV 9.5 fL (7.6-11.3); Monocytes % 9.9 % (3.3-12.3); RBC Red Blood Cell Count 4.96 M/uL (4.33-5.43)
[2018-11-12] MEDS ORDERED: MORPHINE 4 MG/ML SYR ONE (00:04)
[2018-11-12] MEDS ORDERED: NA CHLORIDE 0.9% 1,000 ML ONE ×2 (00:43→02:17)
[2018-11-12] MEDS ORDERED: INSULIN -REGULAR HUMAN 50 UNIT/0.5 ML ML ONE (00:43)
[2018-11-12] MEDS ORDERED: NA CHLORIDE 0.9% 100 ML IV ONE (00:43)
[2018-11-12] MEDS ORDERED: PROMETHAZINE 25 MG/ML VIAL ONE (00:43)
[2018-11-12 00:45] LABS: Arterial Blood Carboxyhemoglob 1.1 % (0-1.5); Blood Gas Oxyhemoglobin 94.1 % (94-97); Blood O2 Saturation 96.5 % (92-98.5)
[2018-11-12 01:06] LABS: Blood Morphology Comment NOT SEEN (NOT SEEN); Platelet Estimate ADEQ
--- NOTE | 2018-11-12 01:43 | EDPHYS ---
Physician Documentation [facility] Name: Frandy Bro Age: 23 yrs Sex: Male : 1995 Arrival Date: 11/11/2018 Time: 22:49 Bed 3 Private MD: Aristides Dominguez T ED Physician Jas Valentine HPI: 11/11 23:38 This 23 yrs old Male presents to ER via Ambulatory with complaints of pkl Nausea/Vomiting. 23:38 The patient presents to the emergency department with nausea, that is moderate, pkl vomiting, abdominal pain, of the right upper quadrant and left upper quadrant. Onset: The symptoms/episode began/occurred this morning. Associated signs and symptoms: Pertinent positives: chest pain. The patient has experienced similar episodes in the past, a few times. Historical: - Allergies: 23:02 No Known Allergies; ak1 - Home Meds: 23:02 Lantus 100 unit/mL Sub-Q soln 30 units at bedtime [Active]; Novolog 100 unit/mL Sub-Q ak1 soln 10 to 15 unites before meals [Active]; - PMHx: 23:02 Diabetes - IDDM; ak1 - PSHx: 23:02 None; ak1 - Immunization history:: Adult Immunizations unknown. - Social history:: Smoking status: Patient/guardian denies using tobacco. - Ebola Screening: : No symptoms or risks identified at this time. ROS: 23:40 Eyes: Negative for injury, pain, redness, and discharge, ENT: Negative for injury, pkl pain, and discharge, Neck: Negative for injury, pain, and swelling. 23:40 Cardiovascular: Positive for chest pain. 23:40 Respiratory: Negative for cough, shortness of breath. 23:40 Abdomen/GI: Positive for abdominal pain, nausea and vomiting, of the right upper quadrant and left upper quadrant. 23:40 Back: Negative for acute changes. 23:40 : Negative for urinary symptoms. 23:40 MS/extremity: Negative for acute changes. 23:40 Skin: Negative for rash. 23:40 Neuro: Negative for altered mental status. Exam: 23:40 Head/Face: Normocephalic, atraumatic. Eyes: Pupils equal round and reactive to light, pkl extra-ocular motions intact. Lids and lashes normal. Conjunctiva and sclera are non-icteric and not injected. Cornea within normal limits. Periorbital areas with no swelling, redness, or edema. 23:40 ENT: Mouth: Oral mucosa: dry. 23:40 Neck: Exam negative for nuchal rigidity. 23:40 Chest/axilla: Exam negative for acute changes. 23:40 Cardiovascular: Rate: tachycardic, actual rate is 144 bpm, Rhythm: regular. 23:40 Respiratory: the patient does not display signs of respiratory distress, Respirations: normal, Breath sounds: are clear throughout. 23:40 Abdomen/GI: Bowel sounds: normal, Palpation: soft, mild abdominal tenderness, in the right upper quadrant and left upper quadrant. 23:40 Back: Exam negative for acute changes. 23:40 : Exam negative for acute changes. 23:40 Musculoskeletal/extremity: Exam is negative for acute changes. 23:40 Skin: Exam negative for rash. 23:40 Neuro: Orientation: is normal, Mentation: is normal, Cranial nerves: grossly normal, Motor: is normal. Vital Signs: 23:02 BP 141 / 111; Pulse 158; Resp 20; Temp 98.1; Pulse Ox 99% on R/A; Weight 54.43 kg (R); ak1 Height 5 ft. 6 in. (167.64 cm) (R); Pain 8/10; 23:36 BP 153 / 70; Pulse 144; Resp 24; Pulse Ox 100% on R/A; aa1 11/12 00:23 BP 142 / 60; Pulse 153; Resp 22; Pulse Ox 99% on R/A; aa1 01:21 BP 128 / 59; Pulse 135; Resp 20; Pulse Ox 98% on R/A; aa1 01:54 BP 126 / 72; Pulse 126; Resp 20; Pulse Ox 100% on R/A; aa1 02:40 BP 116 / 66; Pulse 114; Resp 18; Temp 98.3; Pulse Ox 98% on R/A; Pain 4/10; aa1 11/11 23:02 Body Mass Index 19.37 (54.43 kg, 167.64 cm) ak1 MDM: 11/11 23:28 Patient medically screened. pkl 11/12 01:41 Data reviewed: vital signs, nurses notes, lab test result(s), EKG, radiologic studies, pkl plain films. 11/11 23:09 Order name: Basic Metabolic Panel; Complete Time: 04:30 aa1 11/11 23:09 Order name: CBC with Diff; Complete Time: 01:30 aa1 11/11 23:09 Order name: Hepatic Function; Complete Time: 04:30 aa1 11/11 23:09 Order name: Lipase; Complete Time: 04:30 aa1 11/11 23:38 Order name: ABG; Complete Time: 00:48 pkl 11/11 23:42 Order name: Acetone, Serum; Complete Time: 00:06 pkl 11/12 00:30 Order name: Abdomen Single View EDMS 11/12 00:51 Order name: Urine Dipstick--Ancillary (enter results) mw2 11/12 00:53 Order name: Manual Differential; Complete Time: 01:30 EDMS 11/12 01:41 Order name: Glucose, Ancillary Testing; Complete Time: 01:43 EDMS 11/12 01:57 Order name: Glucose, Ancillary Testing; Complete Time: 04:30 EDMS 11/11 23:09 Order name: IV Saline Lock; Complete Time: 23:37 aa1 11/11 23:09 Order name: Labs collected and sent; Complete Time: 23:38 aa1 11/11 23:37 Order name: EKG; Complete Time: 23:38 aa1 11/11 23:37 Order name: EKG - Nurse/Tech; Complete Time: 23:39 aa1 Administered Medications: 11/11 23:38 Drug: NS 0.9% 1000 ml Route: IV; Rate: 1000 ml; Site: left forearm; aa11/12 00:30 Follow up: IV Status: Completed infusion 11/11 23:39 Drug: Zofran 4 mg Route: IVP; Site: left forearm; aa11/12 00:49 Follow up: Response: No adverse reaction; Vomiting unchanged aa1 00:08 Drug: morphine 2 mg Route: IVP; Site: left forearm; aa1 02:05 Follow up: Response: No adverse reaction; Pain is decreased aa1 00:47 Drug: Insulin Drip - (Insulin Regular Human 100 units, NS 0.9% 100 ml) {Co-Signature: aa1 ca1 (Amparo Akhtar RN).} Route: IV; Rate: calculated rate; Site: left forearm; 02:04 Follow up: IV Status: Infusion continued upon admission aa1 00:49 Drug: Phenergan 12.5 mg Route: IVP; Site: left forearm; aa1 02:04 Follow up: Response: No adverse reaction; Vomiting decreased aa1 00:49 Drug: NS 0.9% 1000 ml Route: IV; Rate: 1000 ml; Site: left forearm; aa1 02:09 Follow up: IV Status: Completed infusion aa1 02:09 Drug: NS 0.9% 1000 ml Route: IV; Rate: 125 ml/hr; Site: left forearm; aa1 02:11 Follow up: IV Status: Infusion continued upon admission aa1 Point of Care Testing: Blood Glucose: 11/11 23:28 Blood Glucose: 488 mg/dL; aa1 11/12 01:58 Blood Glucose: 447 mg/dL; lt1 11/11 23:28 labs drawn and sent at this time aa1 Ranges: Critical Glucose Levels:Adult <50 mg/dl or >400 mg/dl <40 mg/dl or >180 mg/dl Disposition: 11/12/18 01:42 Hospitalization ordered by Jorje Guthrie for Inpatient Admission. Preliminary diagnosis is Diabetic ketoacidosis. Abdominal pain. Vomiting. - Bed requested for Intensive Care Unit. - Status is Inpatient Admission. aa1 - Condition is Stable. - Problem is new. - Symptoms have improved. UTI on Admission? No Signatures: Dispatcher [employer] [facility] Padmini Srivastava RN IBRAHIMA Glo Garcia RN RN aa1 Jas Valentine MD MD pkl Vanesa Martínez RN RN ak1 Amparo Akhtar RN ca1 Corrections: (The following items were deleted from the chart) 11/12 00:01 11/11 23:10 Creatinine for Radiology+C.LAB.BRZ ordered. [facility] 11/12 00:30 11/11 23:38 Abdomen Acute Series+RAD.RAD.BRZ ordered. [facility] 11/12 00:53 11/11 23:53 CBC Smear Scan ordered. [facility] 11/12 01:45 01:42 Hospitalization Ordered by Jorje Guthrie MD for Inpatient Admission. Preliminary diagnosis is Diabetic ketoacidosis. Abdominal pain. Vomiting. Bed requested for Intensive Care Unit. Status is Inpatient Admission. Condition is Stable. Problem is new. Symptoms have improved. UTI on Admission? No. pkl 03:05 01:45 11/12/2018 01:42 Hospitalization Ordered by Jorje Guthrie MD for Inpatient aa1 Admission. Preliminary diagnosis is Diabetic ketoacidosis. Abdominal pain. Vomiting. Bed requested for Intensive Care Unit. Status is Inpatient Admission. Condition is Stable. Problem is new. Symptoms have improved. UTI on Admission? No. mw
--- NOTE | 2018-11-12 01:43 | ER ---
Nurse's Notes [facility] Name: Frandy Bro Age: 23 yrs Sex: Male : 1995 Arrival Date: 11/11/2018 Time: 22:49 Bed 3 Private MD: Aristides Dominguez T Diagnosis: Diabetic ketoacidosis. Abdominal pain. Vomiting Presentation: 11/11 23:00 Presenting complaint: Patient states: abd pain X1 day. pt with N/V X1 day. pt FSBG 230 ak1 at 1900. Transition of care: patient was not received from another setting of care. Onset of symptoms was November 11, 2018. Risk Assessment: Do you want to hurt yourself or someone else? Patient reports no desire to harm self or others. Initial Sepsis Screen: Does the patient meet any 2 criteria? No. Patient's initial sepsis screen is negative. Does the patient have a suspected source of infection? No. Patient's initial sepsis screen is negative. Care prior to arrival: None. 23:00 Method Of Arrival: Ambulatory ak1 23:00 Acuity: JACLYN 3 ak1 Triage Assessment: 23:02 General: Appears uncomfortable, Behavior is agitated, anxious. Pain: Complains of pain ak1 in abdomen. EENT: No signs and/or symptoms were reported regarding the EENT system. Neuro: No deficits noted. Cardiovascular: No deficits noted. Respiratory: No deficits noted. GI: Reports nausea, vomiting. : No signs and/or symptoms were reported regarding the genitourinary system. Derm: No signs and/or symptoms reported regarding the dermatologic system. Musculoskeletal: No signs and/or symptoms reported regarding the musculoskeletal system. Historical: - Allergies: 23:02 No Known Allergies; ak1 - Home Meds: 23:02 Lantus 100 unit/mL Sub-Q soln 30 units at bedtime [Active]; Novolog 100 unit/mL Sub-Q ak1 soln 10 to 15 unites before meals [Active]; - PMHx: 23:02 Diabetes - IDDM; ak1 - PSHx: 23:02 None; ak1 - Immunization history:: Adult Immunizations unknown. - Social history:: Smoking status: Patient/guardian denies using tobacco. - Ebola Screening: : No symptoms or risks identified at this time. Screenin:20 Abuse screen: Denies threats or abuse. Denies injuries from another. Nutritional aa1 screening: No deficits noted. Tuberculosis screening: No symptoms or risk factors identified. Fall Risk None identified. Assessment: 23:20 General: Appears in no apparent distress. uncomfortable, ill, Behavior is cooperative, aa1 appropriate for age, restless. Pain: Complains of pain in chest and abdomen Pain began this morning Is continuous. Neuro: Level of Consciousness is awake, alert, obeys commands, Oriented to person, place, time, situation, Moves all extremities. Speech is normal. Cardiovascular: Reports chest pain, nausea, vomiting, Heart tones S1 S2 present Capillary refill < 3 seconds Patient's skin is warm and dry. Rhythm is regular. Respiratory: Airway is patent Respiratory effort is even, unlabored, Respiratory pattern is Kussmaul. GI: Abdomen is non-distended, Abd is soft X 4 quads Reports upper abdominal pain, nausea, vomiting. : No signs and/or symptoms were reported regarding the genitourinary system. EENT: No signs and/or symptoms were reported regarding the EENT system. Derm: Skin is intact, is healthy with good turgor, Skin is dry, Skin is pale, Skin temperature is warm. Musculoskeletal: Circulation, motion, and sensation intact. Capillary refill < 3 seconds. 23:30 Reassessment: notified of FSBS 488; labs sent at this time. aa1 11/12 00:09 Reassessment: Patient appears in no apparent distress at this time. No changes from aa1 previously documented assessment. Patient and/or family updated on plan of care and expected duration. Pain level reassessed. RT at bedside for ABG draw. 00:35 Reassessment: Spoke with Eber in lab regarding BMP results and was informed that he aa1 needs more blood in order to finish running labs. Selin in phlebotomy notified and she will attempt to collect additional sample. 01:05 Reassessment: Patient appears in no apparent distress at this time. Patient and/or aa1 family updated on plan of care and expected duration. Pain level reassessed. Ore Roaster at bedside attempting lab draw Patient states symptoms have improved. 01:52 Reassessment: Patient appears in no apparent distress at this time. Patient and/or aa1 family updated on plan of care and expected duration. Pain level reassessed. Patient is alert, oriented x 3, equal unlabored respirations, skin warm/dry/pink. Spoke with Eber in lab again regarding BMP results, states they should be resulted in 6 mins. 02:46 Reassessment: Patient appears in no apparent distress at this time. Patient and/or aa1 family updated on plan of care and expected duration. Pain level reassessed. Patient is alert, oriented x 3, equal unlabored respirations, skin warm/dry/pink. Pt to be admitted to ICU. Vital Signs: 11/11 23:02 BP 141 / 111; Pulse 158; Resp 20; Temp 98.1; Pulse Ox 99% on R/A; Weight 54.43 kg (R); ak1 Height 5 ft. 6 in. (167.64 cm) (R); Pain 8/10; 23:36 BP 153 / 70; Pulse 144; Resp 24; Pulse Ox 100% on R/A; aa1 11/12 00:23 BP 142 / 60; Pulse 153; Resp 22; Pulse Ox 99% on R/A; aa1 01:21 BP 128 / 59; Pulse 135; Resp 20; Pulse Ox 98% on R/A; aa1 01:54 BP 126 / 72; Pulse 126; Resp 20; Pulse Ox 100% on R/A; aa1 02:40 BP 116 / 66; Pulse 114; Resp 18; Temp 98.3; Pulse Ox 98% on R/A; Pain 4/10; aa1 11/11 23:02 Body Mass Index 19.37 (54.43 kg, 167.64 cm) ak1 ED Course: 11/11 22:49 Patient arrived in ED. dl4 22:49 Aristides Dominguez MD is Private Physician. dl4 23:01 Triage completed. ak1 23:02 Arm band placed on Patient placed in an exam room, Patient notified of wait time. ak1 23:20 Patient has correct armband on for positive identification. Placed in gown. Bed in low aa1 position. Call light in reach. laboratory monitor on. Pulse ox on. NIBP on. Warm blanket given. 23:20 Missed attempt(s): 20 gauge in left antecubital area. Bleeding controlled, band aid aa1 applied, catheter tip intact. 23:28 Jas Valentine MD is Attending Physician. pkl 23:30 Initial lab(s) drawn, by me, sent to lab. Inserted saline lock: 22 gauge in left aa1 forearm, using aseptic technique. Blood collected. 23:33 Glo Garcia, RN is Primary Nurse. 11/12 00:20 X-ray completed. Portable x-ray completed in exam room. Patient tolerated procedure kw well. 00:30 Abdomen Single View In Process Unspecified. EDMS 01:06 Notified ED physician of a critical lab result(s). Band count of 16% Dr Valentine notified. bb 01:41 Jorje Guthrie MD is Hospitalizing Provider. pkl 02:11 Notified the Hospitalist of a critical lab result(s), K-5.8, Bicarb-8, Glu-601 DrJason aaDominik Carreon notified. 02:14 No provider procedures requiring assistance completed. Patient admitted, IV remains in aa1 place. Administered Medications: 11/11 23:38 Drug: NS 0.9% 1000 ml Route: IV; Rate: 1000 ml; Site: left forearm; aa11/12 00:30 Follow up: IV Status: Completed infusion 11/11 23:39 Drug: Zofran 4 mg Route: IVP; Site: left forearm; aa11/12 00:49 Follow up: Response: No adverse reaction; Vomiting unchanged aa 00:08 Drug: morphine 2 mg Route: IVP; Site: left forearm; aa 02:05 Follow up: Response: No adverse reaction; Pain is decreased aa1 00:47 Drug: Insulin Drip - (Insulin Regular Human 100 units, NS 0.9% 100 ml) {Co-Signature: aa1 ca1 (Amparo Akhtar RN).} Route: IV; Rate: calculated rate; Site: left forearm; 02:04 Follow up: IV Status: Infusion continued upon admission aa 00:49 Drug: Phenergan 12.5 mg Route: IVP; Site: left forearm; aa1 02:04 Follow up: Response: No adverse reaction; Vomiting decreased aa 00:49 Drug: NS 0.9% 1000 ml Route: IV; Rate: 1000 ml; Site: left forearm; aa 02:09 Follow up: IV Status: Completed infusion aa 02:09 Drug: NS 0.9% 1000 ml Route: IV; Rate: 125 ml/hr; Site: left forearm; aa1 02:11 Follow up: IV Status: Infusion continued upon admission aa1 Point of Care Testing: Blood Glucose: 11/11 23:28 Blood Glucose: 488 mg/dL; aa1 11/12 01:58 Blood Glucose: 447 mg/dL; lt1 11/11 23:28 labs drawn and sent at this time aa1 Ranges: Outcome: 11/12 01:42 Decision to Hospitalize by Provider. pkl 02:47 Admitted to ICU accompanied by nurse, accompanied by tech, via stretcher, room 3, on aa1 monitor, with chart, Other bedside report given 02:47 Condition: stable 02:47 Discharge instructions given to patient, Instructed on the need for admit, Demonstrated understanding of instructions. 03:05 Patient left the ED. aa1 Signatures: Dispatcher [employer] EDGlo Rivera RN RN aa1 Jas Valentine MD MD pkRose Mary Butler RN RN Allyson Madera Amber, RN RN ak1 Aristides Quesada dl4 Deonna Oliveros lt1 Amparo Akhtar RN ca1 Corrections: (The following items were deleted from the chart) 01:54 00:35 Reassessment: Spoke with Eber in lab regarding BMP results and was informed aa1 that he needs more blood in order to finish running labs. Selin in phlebotomy notified and she will attempt top collect additional sample aa1 03:05 11/11 23:28 Blood Glucose: Blood Glucose Vuutaqc=215 mg/dL. aa1 aa1
[2018-11-12 02:10] LABS: Albumin 3.6 g/dL (3.4-5.0); Bilirubin Direct 0.2 mg/dL (0-0.2); Bilirubin Total 0.8 mg/dL (0.2-1.0); Protein, Total 6.9 g/dL (6.4-8.2)
[2018-11-12 02:11] LABS: Potassium 5.8 mmol/L (3.5-5.1)
--- NOTE | 2018-11-12 02:28 | P.HP ---
Certification for Inpatient Patient admitted to: Inpatient With expected LOS: >2 Midnights Practitioner: I am a practitioner with admitting privileges, knowledge of patient current condition, hospital course, and medical plan of care. Services: Services provided to patient in accordance with Admission requirements found in Title 42 Section 412.3 of the Code of Federal Regulations Patient History Date of Service: 11/12/18 Reason for admission: DKA History of Present Illness: Mr Bro is a 23 years old male with history of diabetes mellitus type 1, who start with nausea, vomiting, and abdominal pain yesterday morning. He denied diarrhea. His blood sugar was elevated. He states that is compliant with his insulin treatment, but has been eating more that he should lately. He denied fever or chills. Lab work in ED is remarkable for hyperglycemia, elevated acetone levels, bicarbonate 8, anion gap 25. He has had DKA in the past. At my enocuoter he was awake and alert. Allergies No Known Allergies Allergy (Verified 12/18/17 16:21) Home medications list reviewed: Yes Home Medications: Insulin Glargine Human [Lantus*] 15 - 20 unit SQ ACHS #30 ml 06/27/18 - Past Medical/Surgical History Diabetic: Yes -: Diabetes mellitus type 1 -: History of DKA -: History of PVCs -: abscess left forearm -: broke wrist -: Wrist surgery Psychosocial/ Personal History: The patient is single. He has no child. He works at a local [employer]. - Family History Mother -: Other (see notes) Notes: Thyroid; Migraines - Social History Smoking Status: Never smoker Alcohol use: Yes CD- Drugs: No Caffeine use: Yes Place of Residence: Home Review of Systems 10-point ROS is otherwise unremarkable Physical Examination - Physical Exam General: Alert, In no apparent distress HEENT: Atraumatic, PERRLA, Mucous membr. moist/pink, EOMI, Sclerae nonicteric Neck: Supple, 2+ carotid pulse no bruit, No LAD, Without JVD or thyroid abnormality Respiratory: Clear to auscultation bilaterally, Normal air movement Cardiovascular: Regular rate/rhythm, Normal S1 S2 Gastrointestinal: Normal bowel sounds, No tenderness, Tenderness (diffuse tenderness to palpation ) Musculoskeletal: No tenderness Integumentary: No rashes Neurological: Normal speech, Normal strength at 5/5 x4 extr, Normal tone, Normal affect Lymphatics: No axilla or inguinal lymphadenopathy - Studies Laboratory Data (last 24 hrs) 11/12/18 01:13: Sodium 133 L, Potassium 5.8 H*, BUN 19 H, Creatinine 1.25, Glucose 601 H*, Total Bilirubin 0.8, AST 11 L, ALT 16, Alkaline Phosphatase 120 H, Lipase 39 L 11/11/18 23:20: Creatinine Cancelled 11/11/18 23:20: WBC 10.4, Hgb 15.5, Hct 47.4, Plt Count 298 Assessment and Plan - Problems (Diagnosis) (1) DKA, type 1 Current Visit: Yes Status: Acute (2) Diabetes mellitus Onset Date: 12/19/17 Current Visit: No Status: Acute Qualifiers: Diabetes mellitus type: type 1 Diabetes mellitus complication status: with ketoacidosis Diabetes mellitus complication detail: without coma Qualified Code(s): E10.10 - Type 1 diabetes mellitus with ketoacidosis without coma - Plan The patient will be admitted to the hospital due to DKA. Will continue insulin drip and IV fluids infusion by protocol. The patient is tachycardic, afebrile, BP 141/111. Lab work also remarkable for normal WBC count but bandemia. No obvious signs of superimpose infection. - Advance Directives Does patient have a Living Will: No Does patient have a Durable POA for Healthcare: No - Code Status/Comfort Care Code Status Assessed: Yes Code Status: Full Code
[2018-11-12] MEDS ORDERED: ONDANSETRON 4 MG/2 ML VIAL IV PRN (02:47)
[2018-11-12] MEDS ORDERED: INSULIN -REGULAR HUMAN 100 UNIT in NA CHLORIDE 0.9% 100 ML IV SCH (02:47)
[2018-11-12] MEDS: D5 0.45 NS 1,000 ML IV SCH ×5 (03:00→23:00)
[2018-11-12] MEDS: NA CHLORIDE 0.9% 1,000 ML IV SCH ×6 (03:00→23:00)
[2018-11-12 03:38] VITALS: BMI 18.3
[2018-11-12 04:12] LABS: Magnesium 1.8 mg/dL (1.8-2.4); Phosphorus 2.7 mg/dL (2.5-4.9)
[2018-11-12] MEDS ORDERED: MAGNESIUM SULFATE 1 gm IVPB 1 GM/100 ML BAG IV ONE (05:38)
[2018-11-12 07:33] LABS: BUN Blood Urea Nitrogen 12 mg/dL (7-18); Bicarbonate 20 mmol/L (21-32); Glucose Level 218 mg/dL (74-106); Potassium 4.2 mmol/L (3.5-5.1); Sodium Level 140 mmol/L (136-145)
--- NOTE | 2018-11-12 07:56 | EKG ---
Test Date: 2018-11-11 Test Time: 23:27:30 Facilities Maintenance Technician: VINCENT MEASUREMENT RESULTS: Intervals: Rate: 143 MA: 120 QRSD: 70 QT: 280 QTc: 432 [place]: P: 74 MA: 120 QRS: 110 T: 63 INTERPRETIVE STATEMENTS: Sinus tachycardia Right atrial enlargement Right axis deviation Abnormal ECG Compared to ECG 06/24/2018 12:54:17 Right-axis deviation now present Electronically Signed On 11-12-18 07:55:57 MANAGER COMPETITIVE INTELLIGENCE by Igor Rust
--- NOTE | 2018-11-12 08:27 | RAD REPORT ---
EXAM DESCRIPTION: RAD - Abdomen Single View - 11/12/2018 12:29 am CLINICAL HISTORY: Abdominal pain COMPARISON: None. FINDINGS: Bowel gas pattern is non-specific. No obstruction, free air or pneumatosis. No suspicious calcifications. Moderate stool volume fills but does not dilate the left side of the colon. Urinary bladder is distended but not dilated. No significant bony findings IMPRESSION: Negative KUB examination for acute or significant finding.
[2018-11-12] MEDS ORDERED: INFLUENZA VACCINE (for 3y+) 0.5 ML DOSE IMVAC ONE (09:00)
[2018-11-12] MEDS: ENOXAPARIN 40 MG/0.4 ML SQ SCH (09:33)
[2018-11-12 11:48] LABS: BUN Blood Urea Nitrogen 9 mg/dL (7-18); Bicarbonate 21 mmol/L (21-32); Glucose Level 266 mg/dL (74-106); Sodium Level 137 mmol/L (136-145)
[2018-11-12] MEDS ORDERED: D50W 25 GM/50 ML SYRINGE IV PRN (12:44)
[2018-11-12] MEDS ORDERED: GLUCAGON 1 MG/VIAL IM PRN (12:44)
[2018-11-12] MEDS: INSULIN GLARGINE 100 UNITS/ML SQ SCH (13:00)
[2018-11-12] MEDS ORDERED: PHENOL 1.4% ORAL SPRAY 180ML MM PRN (14:34)
[2018-11-12] MEDS: INSULIN -REGULAR HUMAN 50 UNIT/0.5 ML ML SQ SCH ×2 (16:34→20:18)
[2018-11-12 22:05] VITALS: O2SAT 99
[2018-11-13] MEDS: NA CHLORIDE 0.9% 1,000 ML IV SCH (02:17)
[2018-11-13] MEDS: D5 0.45 NS 1,000 ML IV SCH (03:19)
[2018-11-13 04:21] LABS: Absolute Lymphocytes (CBC) 1.7 K/uL (0.7-4.9); Absolute Monocytes 0.7 K/uL (0.1-1.3); Absolute Neutrophil 4.1 K/uL (1.8-8.0); Basophils % 0.3 % (0-1.3); Eosinophils % 3.1 % (0-4.4); Hematocrit 32.6 % (39.6-49.0); Lymphocytes % 24.6 % (15.3-44.8); MPV 8.2 fL (7.6-11.3); Monocytes % 10.6 % (3.3-12.3)
[2018-11-13 04:25] LABS: BUN Blood Urea Nitrogen 10 mg/dL (7-18); Bicarbonate 27 mmol/L (21-32); Glucose Level 99 mg/dL (74-106); Magnesium 1.7 mg/dL (1.8-2.4); Sodium Level 145 mmol/L (136-145)
[2018-11-13] MEDS ORDERED: MORPHINE 2 MG/ML SYR IV ONE (04:52)
[2018-11-13] MEDS ORDERED: POTASSIUM 25 MEQ EFFERV TAB PO ONE (05:07)
[2018-11-13] MEDS ORDERED: MAGNESIUM SULFATE 1 gm IVPB 1 GM/100 ML BAG IV ONE (05:07)
[2018-11-13] MEDS ORDERED: ASPIRIN EC 81 MG TAB PO ONE (05:13)
[2018-11-13] MEDS: KETOROLAC 30 MG/ML INJ IV PRN ×2 (05:20→06:03)
[2018-11-13] MEDS ORDERED: NITROGLYCERIN 0.4 MG/TAB SL ONE (05:25)
--- NOTE | 2018-11-13 07:34 | EKG ---
Test Date: 2018-11-13 Test Time: 04:33:00 Wood Piler: RT MEASUREMENT RESULTS: Intervals: Rate: 75 W[place]: 150 QRSD: 82 QT: 364 QTc: 406 [place]: P: 25 WY: 150 QRS: 46 T: -60 INTERPRETIVE STATEMENTS: Normal sinus rhythm Nonspecific T wave abnormality Abnormal ECG Compared to ECG 11/11/2018 23:27:30 T-wave abnormality now present Sinus tachycardia no longer present Atrial abnormality no longer present Right-axis deviation no longer present Electronically Signed On 11-13-18 07:33:17 PRINTED CIRCUIT BOARDS SOLDER LEVELER by Igor Rust
[2018-11-13] MEDS: INSULIN -REGULAR HUMAN 50 UNIT/0.5 ML ML SQ SCH ×3 (08:02→16:06)
[2018-11-13] MEDS: INSULIN GLARGINE 100 UNITS/ML SQ SCH ×2 (08:08→12:44)
[2018-11-13] MEDS: ENOXAPARIN 40 MG/0.4 ML SQ SCH (10:07)
[2018-11-13] MEDS ORDERED: INFLUENZA VACCINE (for 3y+) 0.5 ML DOSE IMVAC ONE (11:00)
--- NOTE | 2018-11-13 12:42 | RAD REPORT ---
EXAM DESCRIPTION: NM - Rest Stress Cardiac Imaging - 11/13/2018 12:32 pm CLINICAL HISTORY: Chest pain COMPARISON: None. TECHNIQUE: The patient was administered approximately 10 mCi of Tc 99m Sestamibi prior to resting SP ECT imaging of the heart. The patient was then administered approximately 30 mCi of Tc 99m Sestamibi following exercise or pharmacologic stress. Multiplanar SPECT images were reviewed. FINDINGS: The end diastolic volume is 88 ml, the end systolic volume is 38 ml, and the ejection frac tion is 54 %. There is a small focus of diminished activity in the anterior wall near the apex not present on rest imaging. No other area of stress only diminished activity. There is background artifact along the inf erior wall near the apex. No scarred myocardium identifiable. IMPRESSION: Small focus of stress ischemia anterior wall near the apex. Ventricular volumes and ejection fraction are normal range.
[2018-11-13] MEDS ORDERED: POTASSIUM CL SA 10 MEQ TAB PO ONE (13:41)
[2018-11-13 16:12] VITALS: BP 110/70; TEMP 97.6
--- NOTE | 2018-11-13 18:04 | P.DS ---
Admission Date: 11/12/18 Discharge Date: 11/13/18 Disposition: ROUTINE DISCHARGE Discharge Condition: GOOD Reason for Admission: DKA Consultations: Cardiology Procedures: 11/13/2017: Stress test: Abnormal, but no cardiac catheterization to be done as per cardiology. They would like to follow him outpatient Brief History of Present Illness: Mr Bor is a 23 years old male with history of diabetes mellitus type 1, who start with nausea, vomiting, and abdominal pain yesterday morning. He denied diarrhea. His blood sugar was elevated. He states that is compliant with his insulin treatment, but has been eating more that he should lately. He denied fever or chills. Lab work in ED is remarkable for hyperglycemia, elevated acetone levels, bicarbonate 8, anion gap 25. He has had DKA in the past. At my enocuoter he was awake and alert. Hospital Course: Patient was admitted to the ICU for DKA. Insulin drip and fluids were started per protocol. The patient's blood sugars improved, he was transitioned to subcutaneous insulin and the drip was discontinued after the gap was closed. Patient remained alert oriented throughout the stay. He was then transferred out of the ICU to the regular floor. Overnight, he complained of chest pain and cardiology was consulted. Due to his risk factors, and echo and stress test were ordered. Per cardiology, the stress test was abnormal so they would not like to do a cath on a patient due to his age along with the recent DKA. They would like to start patient on low-dose TANYA-inhibitor and aspirin, discharge patient. They would like to follow up outpatient with him in 2 weeks for any further evaluation at that time. The diagnoses/symptoms explained to patient extensively, all questions were answered, and patient verbalized understanding. Information for outpatient cardiology given to patient. Vital Signs/Physical Exam: Temp Pulse Resp BP Pulse Ox 97.6 F 70 18 110/70 99 11/13/18 16:00 11/13/18 16:00 11/13/18 16:00 11/13/18 16:00 11/13/18 16:00 General: Alert, In no apparent distress, Oriented x3 HEENT: Atraumatic, PERRLA, EOMI Neck: Supple, JVD not distended Respiratory: Clear to auscultation bilaterally, Normal air movement Cardiovascular: Regular rate/rhythm, Normal S1 S2 Gastrointestinal: Normal bowel sounds, No tenderness Musculoskeletal: No tenderness Integumentary: No rashes Neurological: Normal speech, Normal tone, Normal affect Lymphatics: No axilla or inguinal lymphadenopathy Laboratory Data at Discharge: WBC 6.7 K/uL (4.3-10.9) D 11/13/18 03:43 Hgb 11.4 g/dL (13.6-17.9) L D 11/13/18 03:43 Hct 32.6 % (39.6-49.0) L D 11/13/18 03:43 Plt Count 204 K/uL (152-406) D 11/13/18 03:43 Sodium 145 mmol/L (136-145) 11/13/18 03:43 Potassium 3.8 mmol/L (3.5-5.1) 11/13/18 11:04 BUN 10 mg/dL (7-18) 11/13/18 03:43 Creatinine 0.66 mg/dL (0.55-1.3) 11/13/18 03:43 Glucose 99 mg/dL (74-106) 11/13/18 03:43 Phosphorus 2.7 mg/dL (2.5-4.9) 11/12/18 03:21 Magnesium 1.7 mg/dL (1.8-2.4) L 11/13/18 03:43 Total Bilirubin 0.8 mg/dL (0.2-1.0) 11/12/18 01:13 AST 11 U/L (15-37) L 11/12/18 01:13 ALT 16 U/L (12-78) 11/12/18 01:13 Alkaline Phosphatase 120 U/L (45-117) H 11/12/18 01:13 Troponin I < 0.02 ng/mL (0.0-0.045) 11/13/18 05:24 Lipase 39 U/L (73-393) L 11/12/18 01:13 Home Medications: Insulin Aspart [Novolog Flexpen] 10 - 15 units SQ TIDWM 11/12/18 Insulin Glargine Human [Lantus*] 25 unit SQ BEDTIME 11/12/18 Aspirin [Aspirin EC 81 MG] 81 mg PO DAILY #30 tablet.dr 11/13/18 Atorvastatin Calcium [Lipitor] 40 mg PO BEDTIME #30 tab 11/13/18 Lisinopril 5 mg PO DAILY #30 tablet 11/13/18 New Medications: Aspirin [Aspirin EC 81 MG] 81 mg PO DAILY #30 tablet. Atorvastatin Calcium [Lipitor] 40 mg PO BEDTIME #30 tab Lisinopril 5 mg PO DAILY #30 tablet Patient Discharge Instructions: Please follow up with the primary care physician in 1 week. Please follow up with cardiology in 2 weeks. Information provided to you. As discussed, under stress test was slightly abnormal. Please continue working on lifestyle modifications that we discussed. Please follow up with the major gifts manager in the next 2 weeks to discuss potentially getting an insulin pump. New medications: Lisinopril 5 mg daily, aspirin 81 mg daily, atorvastatin 40 mg daily. Diet: ADA Activity: Ad sherley Followup: Kole Roth MD [ACTIVE - CAN ADMIT] - 1-2 Weeks Physician Review: Patient Assessed, Agree with Above Assessment and Plan Time spent managing pt's care (in minutes): 55
--- NOTE | 2018-11-14 00:51 | CON ---
Date of Consultation: 11/13/[address] Goodman's service for DKA, chest pain, nausea and vomiting. I saw the patient on 11/13. History Of Present Illness: Mr. Bro is a 23-year-old, has a history of diabetes, insulin dependen t, came in with DKA, had severe metabolic acidosis when he came in with a pH of 7.16, had a pCO2 of 1 8. Has been having nausea, vomiting, and mid epigastric pain since he came in, described the pain as dull pressure, constant. No shortness of breath. Denied PND, orthopnea, pedal edema, palpitations, or syncope. His troponin, CPKs, and MBs are negative. His EKG shows sinus tachycardia. KUB was ne gative. Chest x-ray was negative. Past Medical History: Diabetes. Allergies: NONE. Review of Systems: Negative. Social History: Negative. Family History: Positive for diabetes. Medications: At home include insulin. Physical Examination: Vital Signs: Stable. Afebrile. HEENT: Negative. Neck: Supple. No bruit. Chest: Clear. Cardiac: Revealed a regular rhythm and rate. No murmurs, gallops, or rubs. Abdomen: Benign. Extremities: Revealed no clubbing, cyanosis, or edema. Diagnostic Data: As stated earlier. Impression And Plan: Atypical chest pain in a patient who has diabetes. He is only 23, very unlikel y that we have any issues with coronary artery disease. Echocardiogram is pending. A stress Cardiol ite is ordered. We will see what those shows prior to making final decisions. Regardless, I think h e should probably be on a small dose of statin and TANYA inhibitors anyway. I will discuss the case fu rther with Dr. Goodman. AUGUSTIN/MODL Voice ID: [id number] Report ID: [id number]
--- NOTE | 2018-11-14 07:40 | TREADMILL ---
70% H.R.: 137 85% H.R.: 167 90% H.R.: 177 100% H.R.: 197 DX: CHEST PAIN Date of Study: 11/13/2018 Ht: 5 6 Wt: 113 lb 9 oz Consulting Physician: KENDRA MEDICATIONS: DEXTROSE, LOVENOX, GLUCAGEN, LENTUS, NOVOLIN, TORADOL, ZOFRAN, PHENOL HISTORY: 23 YEAR OLD MALE WITH COMPLAINTS OF DIABETIC KETOACIDOSIS. HISTORY OF DIABETES. PATIENT VAPES CIGARETTES, NON DRINKER. PHYSICIAL EXAMINATION: RESTING B.P.: 120/73 RESTING H.R.: 89 RESTING EKG: NORMAL PROTOCOL: MEGA MYOVIEW EXERCISE TIME: 8:43 MAXIMUM HEART RATE: 171 87 % OF PREDICTED B.P. AT PEAK STRESS: 142/77 H.R. AT 1 MINUTE POST EXERCISE: IMPRESSION: ROUTINE TREADMILL STOPPED DUE TO TARGET HEART RATE REACHED AND PATIENT FATIGUE. CARDIOLITE INJECTED PER PROTOCOL. SEE NUCLEAR MEDICINE REPORT. NO SUPRAVENTRICULAR TACHYCARDIA. NO VENTRICULAR TACHYCARDIA. NINE PREMATURE VENTRICULAR COMPLEXES DURING RECOVERY. PATIENT REPORTED NO CHEST PAIN OR TIGHTNESS THROUGHTOUT PROCEDURE.
--- NOTE | 2018-11-14 07:49 | ECHO ---
HEIGHT: 5 ft 6 in WEIGHT: 113 lb 9 oz DATE OF STUDY: 11/13/[address]: Jorje Carreon MD 2-DIMENSIONAL: YES M.MODE: YES DOPPLER: YES COLOR FLOW: YES TDS: NO PORTABLE: NO DEFINITY: NO BUBBLE STUDY: NO DIAGNOSIS: EKG CHANGES, CHEST PAIN CARDIAC HISTORY: CATHERIZATION: NO SURGERY: NO PROSTHETIC VALVE: NO PACEMAKER: NO MEASUREMENTS (cm) DIASTOLIC (NORMALS) SYSTOLIC (NORMALS) IVSd 0.9 (0.6-1.2) LA Diam 3.4 (1.9-4.0) LVEF 63% LVIDd 4.2 (3.5-5.7) LVIDs 2.8 (2.0-3.5) %FS 34% LVPWd 0.9 (0.6-1.2) Ao Diam 2.5 (2.0-3.7) 2 DIMENSIONAL ASSESSMENT: RIGHT ATRIUM: NORMAL LEFT ATRIUM: NORMAL RIGHT VENTRICLE: NORMAL LEFT VENTRICLE: NORMAL TRICUSPID VALVE: NORMAL MITRAL VALVE: NORMAL PULMONIC VALVE: NORMAL AORTIC VALVE: NORMAL PERICARDIAL EFFUSION: NONE AORTIC ROOT: NORMAL LEFT VENTRICULAR WALL MOTION: NORMAL DOPPLER/COLOR FLOW: NORMAL COMMENTS: NORMAL 2D ECHOCARDIOGRAM WITH DOPPLER. NO WALL MOTION ABNORMALITY. NO EFFUSION. TECHNOLOGIST: Karen NUNEZ
== END 2018-11-13 19:50 | disposition home or self-care (01) | DRG 638 ==
LOC: ER 22:45 → ERHOLD 11-12 02:19 → 3RD-ICU 11-12 02:44 → 4TH 11-12 17:10
PROVIDERS: ADMIT Internal Medicine; ATTEND Family Medicine
DX: E10.10 Type 1 diabetes mellitus with ketoacidosis without coma (principal); E87.2 Acidosis; R07.89 Other chest pain
CPT/HCPCS: 36415; 74018; 78452; 80048; 80076; 82010; 82805; 82962; 83690; 83735; 84100; 84132; 84484; 85025; 93005; 93017; 93306; 96361; 96365; 96375; 99285; A9500; J1650; J2405; J2550; J3475; J7030

== ENCOUNTER 2019-07-28 10:26 | Day surgery (SDC) | payer BC ==
--- NOTE | 2019-07-27 15:35 | RAD REPORT ---
EXAM DESCRIPTION: RAD - Chest Pa And Lat (2 Views) - 07/27/2019 3:28 pm CLINICAL HISTORY: preop Chest pain. COMPARISON: <Comparisons> FINDINGS: The lungs are clear. The heart is normal in size. No displaced fractures. IMPRESSION: No acute or concerning finding suspected.
[2019-07-27 16:23] LABS: Absolute Lymphocytes (CBC) 1.7 K/uL (0.7-4.9); Basophils % 0.7 % (0-1.3); Hematocrit 40.7 % (39.6-49.0); Lymphocytes % 35.4 % (15.3-44.8); MPV 8.5 fL (7.6-11.3); RBC Red Blood Cell Count 4.57 M/uL (4.33-5.43)
[2019-07-27 16:27] LABS: Protime INR 1.03
[2019-07-27 16:29] LABS: BUN Blood Urea Nitrogen 19 mg/dL (7-18); Bicarbonate 31 mmol/L (21-32); Glucose Level 169 mg/dL (74-106); Potassium 3.5 mmol/L (3.5-5.1); Sodium Level 140 mmol/L (136-145)
[2019-07-28] MEDS ORDERED: NA CHLORIDE 0.9% 500 ML ONE (10:30)
--- NOTE | 2019-07-28 11:36 | EKG ---
Test Date: 2019-07-27 Test Time: 15:11:17 Coordinate Measuring Machine Programmer: MARTI MEASUREMENT RESULTS: Intervals: Rate: 75 [place]: 134 QRSD: 84 QT: 360 QTc: 402 [place]: P: 51 OK: 134 QRS: 71 T: -39 INTERPRETIVE STATEMENTS: Normal sinus rhythm with sinus arrhythmia T wave abnormality, consider inferior ischemia Abnormal ECG Compared to ECG 11/13/2018 04:33:00 Possible ischemia now present T-wave abnormality still present Electronically Signed On 07-28-19 11:33:45 CDT by Kole Roth
[2019-07-28] MEDS ORDERED: ATROPINE SULF 1 MG/10 ML SYR IV ONE (12:20)
[2019-07-28] MEDS ORDERED: NA CHLORIDE 0.9% 0 ML IV ONE (12:20)
[2019-07-28] MEDS ORDERED: HEPA 1000U/500MLS 1,000 UNIT/500 ML BAG IV ONE (12:47)
[2019-07-28] MEDS ORDERED: MIDAZOLAM HCL 2 MG/2 ML INJ ONE ×3 (13:03→13:12)
[2019-07-28] MEDS ORDERED: FENTANYL CITR 100 MCG/2 ML ONE (13:03)
[2019-07-28] MEDS ORDERED: NA CHLORIDE 0.9% 0 ML ONE (13:10)
[2019-07-28] MEDS ORDERED: ACETAMINOPHEN 325 MG TABLET ONE (15:05)
[2019-07-28 15:24] VITALS: BP 128/71; TEMP 98; O2SAT 98
--- NOTE | 2019-07-29 00:53 | OP ---
Surgeon: Kole Roth MD Book Jacket Cover Machine Operator: Soo Garcia. Indication For The Procedure: Admitted as an outpatient for left heart catheterization, selective co ronary arteriogram. History of AK in November, chest pain, diabetes. Description Of Procedure: Patient was prepped and draped in the routine sterile fashion. Given Vers ed and fentanyl for sedation. A 6-Sinhala sheath was introduced in the right common femoral artery cai ccessfully. Les catheter left and right were used to do the angiography. The left main was norm al. Circumflex was normal. LAD was normal. His RCA was normal. He was left dominant. Complications: None. Blood Loss: 5 cc. Anesthesia: Total conscious sedation was 30 minutes. Plan: Plan is for medical therapy. AUGUSTIN/BELKIS Voice ID: [id number] Report ID: [id number]
== END 2019-07-28 15:41 | disposition home or self-care (01) ==
LOC: CCL 10:26
DX: R07.9 Chest pain, unspecified (principal); I25.2 Old myocardial infarction; R94.39 Abnormal result of other cardiovascular function study; R94.31 Abnormal electrocardiogram [ECG] [EKG]; E78.5 Hyperlipidemia, unspecified; E10.9 Type 1 diabetes mellitus without complications; Z79.4 Long term (current) use of insulin; F17.290 Nicotine dependence, other tobacco product, uncomplicated
CPT/HCPCS: 93005; 85025; 80048; 36415; 85610; 82962 ×3; 85730; 71046; 93454; C1893; C1760; J2250 ×3; J3010; J0583

== ENCOUNTER 2020-06-18 22:05 | Inpatient (IN) | payer BC ==
--- OUTSIDE RECORDS SUMMARY | 2020-06-18 22:07 | XMS REPORT | Summary of Care ---
:1995 Author Organization [facility] Address [address] [place] [address] Care Team Providers Name Role Phone Alberto Aristides Be Primary Care Provider Reason for Visit Reason Comments Refill Request Encounter Details Date Type Department Care Team Description 05/01/2020 Refill [facility] Endocrinology- Germaine Carrizales MD Refill Request [address] [address] [address] [place] [address] [phone] Allergies No Known Allergiesdocumented as of this encounter (statuses as of 05/02/2020) Medications Medication Sig Dispensed Refills Start Date End Date Status Hyoscyamine Sulfate 0 01/20/2020 Active 0.125 mg TbDL methscopolamine 5 mg 0 01/20/2020 Active tablet ANTONI PEN NEEDLE 32 gauge 0 11/18/2019 Active x 32" Ndle blood sugar diagnostic Use as directed, 500 Strip 1 01/20/2020 Active (ACCU-CHEK GUIDE) five times per stripIndications: Type 1 day, DX:E11.9 diabetes mellitus without complication Lancets (ACCU-CHEK Use as directed, 500 Each 1 01/20/2020 Active FASTCLIX LANCING DEV) five times per MiscIndications: Type 1 day, DX:E11.9 diabetes mellitus without complication DEXCOM G6 GEARCASE ASSEMBLER Use as directed 1 Each 0 01/29/2020 Active MiscIndications: Type 1 diabetes mellitus without complication DEXCOM G6 SENSOR 1 Each every 10 3 Each 6 01/29/2020 Active DeviIndications: Type 1 (ten) days. Use diabetes mellitus as directed without complication DEXCOM G6 TRANSMITTER 1 Each every 3 1 Each 3 01/29/2020 Active DeviIndications: Type 1 (three) months. diabetes mellitus Use as directed without complication TRESIBA FLEXTOUCH U-100 inject 22-25 24 mL 1 03/01/2020 Active 100 unit/mL (3 mL) Units under the InPnIndications: Type 1 skin every diabetes mellitus morning. without complication insulin lispro (HUMALOG inject 10-17 15 mL 4 03/01/2020 Active KWIKPEN INSULIN) 100 Units under the unit/mL pen skin 3 (three) injectorIndications: times daily Type 1 diabetes mellitus before meals. without complication documented as of this encounter (statuses as of 05/02/2020) Active Problems Problem Noted Date Vitamin D deficiency 06/04/2016 Counseling for insulin pump 06/04/2016 Uncontrolled type 1 diabetes mellitus 12/28/2015 PVC (premature ventricular contraction) 12/28/2015 DM type 1 (diabetes mellitus, type 1) 12/01/2013 documented as of this encounter (statuses as of 05/02/2020) Social History Tobacco Use Types Packs/Day Years Used Date Current Every Day Smoker Smokeless Tobacco: Current User Comments: vapor Alcohol Use Drinks/Week oz/Week Comments Yes Sex Assigned at Date Recorded Not on file Job Start Date Occupation Industry Not on file Not on file Not on file Travel History Travel Start Travel End No recent travel history available. documented as of this encounter Last Filed Vital Signs Not on filedocumented in this encounter Plan of Treatment Health Maintenance Due Date Last Done Comments VARICELLA VACCINES (1 of 2 1996 - 2-dose childhood series) PNEUMOCOCCAL 0-64 YEARS 2001 COMBINED SERIES (1 of 1 - PPSV23) DTaP,Tdap,and Td Vaccines 2006 (1 - Tdap) Depression Screening 2007 EYE EXAM 05/05/2020 Postponed from 2005 ([place] ent Does Not Have Ti me) HgA1C 07/22/2020 01/20/2020, 12/30/2017, 06/04/2016, Additional history exists FOOT EXAM 01/19/2021 01/20/2020, 01/20/2020, 12/30/2017, Additional history exists CREATININE (SERUM) 01/27/2021 11/18/2016, 06/13/2016, Postp oned from 12/01/2013 11/18/2017 (Insu ino / Financial) INFLUENZA VACCINE (Season 01/27/2021 Postpo chika from Ended) 07/12/2020 (Refu sed) LDL-C 01/27/2021 06/13/2016, 12/01/2013 Postponed from 06/13/2017 (Insu ino / Financial) URINE MICROALBUMIN 01/27/2021 06/13/2016, 12/01/2013 Postpo chika from 06/13/2017 (Refu sed) HPV VACCINES Aged Out No longer eligib le based on patient 's age to complete this topic documented as of this encounter Results Not on filedocumented in this encounter Visit Diagnoses Diagnosis Type 1 diabetes mellitus without complic ation Type I (juvenile type) diabetes mellitus without mention of complication, not stated as uncontrolled documented in this encounter Insurance Payer Benefit Plan Subscriber ID Effective Dates Phone Address Type / Group CIGNA CIGNA II [id number] 2019-Sudha O/PPO/P t OS BCBS OF [facility] [id number] 2018-Sudha [phone] [address] PPO/POS [place] t 7 [id number] [place] [address] documented as of this encounter
--- OUTSIDE RECORDS SUMMARY | 2020-06-18 22:07 | XMS REPORT | Continuity of Care Document ---
:1995 Author Organization [facility] t Address [address] [place] [address] Dr. Jacinto [address] [place] [address] Care Team Providers Name Role Phone All [facility] Attending Clinician Problems This patient has no known problems. Allergies, Adverse Reactions, Alerts This patient has no known allergies or adverse reactions. Medications This patient has no known medications. Procedures This patient has no known procedures. Encounters Start End Encounter Admission Attending Care Care Encounter Source Date/Time Date/Time Type Type Clinicians Facility Department ID 2020-05-01 2020-05-01 Refill ALLISON Carrizales [id number] 00:00:00 00:00:00 Germaine Lincoln [id number] Mack [id number] Abhi [id number] [facility] [address] Results This patient has no known results.
--- OUTSIDE RECORDS SUMMARY | 2020-06-18 22:08 | XMS REPORT | Summary of Care ---
:1995 Author Organization [facility] Address [address] [place] [address] Care Team Providers Name Role Phone Alberto Aristides Be Primary Care Provider Reason for Visit Reason Comments Refill Request Encounter Details Date Type Department Care Team Description 05/01/2020 Refill [facility] Endocrinology- Germaine Carrizales MD Refill Request [address] [address] [address] [place] [address] [phone] Allergies No Known Allergiesdocumented as of this encounter (statuses as of 05/03/2020) Medications Medication Sig Dispensed Refills Start Date [...] DX:E11.9 diabetes mellitus without complication DEXCOM G6 DROSOPHERE OPERATOR Use as directed 1 Each 0 01/29/2020 [...] as of this encounter (statuses as of 05/03/2020) Active Problems Problem Noted Date Vitamin D deficiency 06/04/2016 Counseling for insulin pump 06/04/2016 Uncontrolled type 1 diabetes mellitus 12/28/2015 PVC (premature ventricular contraction) 12/28/2015 DM type 1 (diabetes mellitus, type 1) 12/01/2013 documented as of this encounter (statuses as of 05/03/2020) Social History Tobacco Use Types Packs/Day Years [...] filedocumented in this encounter Plan of Treatment Date Type Specialty Care Team Description 07/20/2020 Office Visit Endocrinology Diabetes & Gerry Carrizales MD Metabolism [address] [place] [address] [phone] Health Maintenance Due Date Last Done Comments [...] Address Type / Group CIGNA CIGNA II [id number] 2019-Sudha O/PPO/P t OS BCBS OF [facility] [id number] 2018-Sudha [phone] [address] PPO/POS [place] t [id number] [place] [address] documented as of this encounter
[2020-06-18] MEDS ORDERED: NA CHLORIDE 0.9% 2,000 ML ONE (22:35)
[2020-06-18 22:38] LABS: Absolute Lymphocytes (CBC) 1.1 K/uL (0.7-4.9); Basophils % 0.2 % (0-1.3); Hematocrit 44.7 % (39.6-49.0); Lymphocytes % 6.2 % (15.3-44.8); MPV 8.9 fL (7.6-11.3); RBC Red Blood Cell Count 5.14 M/uL (4.33-5.43)
[2020-06-18 22:59] LABS: Arterial Blood Carboxyhemoglob 1.8 % (0-1.5); Blood Gas Oxyhemoglobin 94.6 % (94-97); Blood O2 Saturation 97.1 % (92-98.5)
[2020-06-18] MEDS ORDERED: MAGNE/ALUM HYDROXD 30 ML UCUP ONE (23:14)
[2020-06-18] MEDS ORDERED: LIDOCAINE VISCOUS 2% SOLN 15 ML UDC ONE (23:14)
[2020-06-18] MEDS ORDERED: ONDANSETRON 4 MG/2 ML VIAL ONE (23:14)
[2020-06-18 23:23] LABS: Albumin 4.4 g/dL (3.4-5.0); Bilirubin Direct 0.3 mg/dL (0-0.2); Bilirubin Total 1.2 mg/dL (0.2-1.0); Potassium 4.4 mmol/L (3.5-5.1); Protein, Total 8.1 g/dL (6.4-8.2)
[2020-06-19] MEDS ORDERED: NA CHLORIDE 0.9% 0 ML ONE (00:35)
--- NOTE | 2020-06-19 00:50 | EDPHYS ---
Physician Documentation [facility] Name: Frandy Bro Age: 24 yrs Sex: Male : 1995 Arrival Date: 06/18/2020 Time: 22:06 Bed 7 Private MD: ED Physician Matthew Zepeda HPI: 06/18 22:48 This 24 yrs old Male presents to ER via Ambulatory with complaints of High jmm Blood Sugar. 22:48 The patient or guardian reports hyperglycemia, polyphagia. Onset: The symptoms/episode jmm began/occurred this morning. Associated signs and symptoms: Pertinent negatives:. Associated signs and symptoms: Pertinent positives: vomiting. The patient has experienced similar episodes in the past. This is a 24 year old male with a history of DM that presents to the ED with complaints of elevated bgl, vomiting. Patient states this began today. Patient states he is unable to keeps fluids down. . Historical: - Allergies: 22:23 No Known Allergies; sg - Home Meds: 22:23 Lantus 100 unit/mL Sub-Q soln 30 units at bedtime [Active]; Novolog 100 unit/mL Sub-Q sg soln 10 to 15 unites before meals [Active]; - PMHx: 22:23 Diabetes - IDDM; sg - PSHx: 22:23 None; sg - Immunization history:: Adult Immunizations up to date. - Social history:: Smoking status: Patient denies any tobacco usage or history of. ROS: 22:48 Abdomen/GI: Positive for vomiting. jmm 22:48 All other systems are negative. 06/19 00:36 Cardiovascular: Positive for chest pain. jmm All other systems are negative. Exam: 06/18 22:48 Constitutional: This is a well developed, well nourished patient who is awake, alert, jmm and in no acute distress. Head/Face: atraumatic. Eyes: EOMI, no conjunctival erythema appreciated ENT: Moist Mucus Membranes Neck: Trachea midline, Supple Chest/axilla: Normal chest wall appearance and motion. Cardiovascular: Regular rate and rhythm. No edema appreciated Respiratory: Normal respirations, no respiratory distress appreciated Abdomen/GI: Non distended, soft Back: Normal ROM Skin: General appearance color normal MS/ Extremity: Moves all extremities, no obvious deformities appreciated, no edema noted to the lower extremities Neuro: Awake and alert, normal gait Psych: Behavior is normal, Mood is normal, Patient is cooperative and pleasant Vital Signs: 22:20 Weight 52.16 kg (R); Height 5 ft. 6 in. (167.64 cm) (R); sg 22:35 BP 107 / 72; Pulse 128; Resp 19; Temp 98.3; Pulse Ox 99% on R/A; ea 23:12 BP 110 / 63; Pulse 118; Resp 18; Pulse Ox 99% ; ea 06/19 00:00 BP 106 / 62; Pulse 105; Resp 18; Pulse Ox 99% ; ea 01:00 BP 109 / 63; Pulse 103; Resp 19; Pulse Ox 99% ; ea 02:38 BP 104 / 57; Pulse 102; Resp 18; Temp 98.2; Pulse Ox 98% ; ea 06/18 22:20 Body Mass Index 18.56 (52.16 kg, 167.64 cm) sg MDM: 06/18 22:19 Patient medically screened. [facility] 06/19 00:29 Data reviewed: vital signs, nurses notes. [facility] 00:48 Data reviewed: lab test result(s). Counseling: I had a detailed discussion with the [facility] patient and/or guardian regarding: the historical points, exam findings, and any diagnostic results supporting the discharge/admit diagnosis, lab results, the need for further work-up and treatment in the hospital. ED course: I discussed the patient with Dr. Crisostomo whom accepted admission. . 06/18 22:20 Order name: Basic Metabolic Panel [facility] 06/18 22:20 Order name: CBC with Diff [facility] 06/18 22:20 Order name: Hepatic Function [facility] 06/18 22:20 Order name: Lipase [facility] 06/18 22:26 Order name: ABG [facility] 06/18 22:30 Order name: Glucose, Ancillary Testing; Complete Time: 22:35 EDMS 06/18 22:40 Order name: CBC with Automated Diff; Complete Time: 22:42 EDMS 06/18 23:01 Order name: ABG Arterial Blood Gas; Complete Time: 23:16 EDMS 06/18 23:23 Order name: Basic Metabolic Panel; Complete Time: 23:35 EDMS 06/18 23:23 Order name: Liver (Hepatic) Function; Complete Time: 23:35 EDMS 06/18 23:23 Order name: Lipase; Complete Time: 23:35 EDMS 06/19 00:36 Order name: Troponin (emerg Dept Use Only) [facility] 06/19 00:40 Order name: Urine Dipstick--Ancillary (enter results) ds4 06/19 00:46 Order name: COVID-19 [facility] 06/18 22:20 Order name: IV Saline Lock; Complete Time: 22:35 [facility] 06/18 22:20 Order name: Labs collected and sent; Complete Time: 22:35 [facility] 06/18 22:20 Order name: Urine Dipstick-Ancillary (obtain specimen); Complete Time: 00:39 [facility] 06/19 00:06 Order name: PO challenge; Complete Time: 01:28 [facility] 06/19 00:20 Order name: Chest Single View XRAY [facility] 06/19 00:36 Order name: EKG - Nurse/Tech; Complete Time: 01:05 [facility] 06/19 00:58 Order name: Urine Dipstick-Ancillary; Complete Time: 20:03 EDMS 06/19 02:05 Order name: Troponin (Emerg Dept Use Only); Complete Time: 20:03 EDMS Administered Medications: 06/18 22:35 Drug: NS 0.9% 2000 ml Route: IV; Rate: 1 bolus; Site: right wrist; jd3 08 00:30 Follow up: Response: No adverse reaction; IV Status: Completed infusion; IV Intake: ea 2000ml 06/18 23:05 Drug: Zofran (Ondansetron) 4 mg Route: IVP; Site: right wrist; ea 06/19 00:00 Follow up: Response: No adverse reaction ea 06/18 23:11 Drug: GI Cocktail without - (Maalox Suspension 30 ml, Lidocaine Liquid 2 % 15 ea ml) Route: PO; 06/19 00:00 Follow up: Response: No adverse reaction ea 01:05 Drug: NS 0.9% 1000 ml Route: IV; Rate: 1 bolus; Site: right antecubital; ea 02:42 Follow up: Response: No adverse reaction; IV Status: Completed infusion; IV Intake: ea 1000ml 01:28 Drug: morphine 4 mg Route: IVP; Site: right wrist; ea 02:42 Follow up: Response: No adverse reaction; Pain is decreased; RASS: Restless (+1) ea Disposition: 08/09/20 00:49 Hospitalization ordered by Víctor Crisostomo for Inpatient Admission. Preliminary diagnosis are Dehydration, Vomiting, Hyperglycemia, unspecified. - Bed requested for Telemetry/MedSurg (observation). - Status is Inpatient Admission. jd3 - Condition is Stable. - Problem is an acute exacerbation. - Symptoms have improved. Addendum: 06/20/2020 11:02 Co-signature as Attending Physician, Matthew Zepeda MD I agree with the assessment and c daly plan of care. Signatures: Dispatcher [employer] EDMS Reinaldo Garvin, RN RN Matthew Choi MD MD cha Mickail, Joel, PA PA [facility] Celia Cerda, RN IBRAHIMA Ghazal Chamorro RN Dom Phillips ea, RN RN jd3 Corrections: (The following items were deleted from the chart) 06/19 00:36 06/18 22:48 Constitutional: Negative for fever, chills, and weight loss, [facility] Cardiovascular: Negative for chest pain, palpitations, and edema, Respiratory: Negative for shortness of breath, cough, wheezing, and pleuritic chest pain, [facility] 06/19 01:50 00:49 Hospitalization Ordered by Víctor Crisostomo for Inpatient Admission. Preliminary diagnosis is Dehydration; Vomiting; Hyperglycemia, unspecified. Bed requested for Telemetry/MedSurg (observation). Status is Inpatient Admission. Condition is Stable. Problem is an acute exacerbation. Symptoms have improved. [facility] 03:00 01:50 06/19/2020 00:49 Hospitalization Ordered by Víctor Crisostomo for Inpatient jd3 Admission. Preliminary diagnosis is Dehydration; Vomiting; Hyperglycemia, unspecified. Bed requested for Telemetry/MedSurg (observation). Status is Inpatient Admission. Condition is Stable. Problem is an acute exacerbation. Symptoms have improved. cg
--- NOTE | 2020-06-19 00:50 | ER ---
Nurse's Notes [facility] Name: Frandy Bro Age: 24 yrs Sex: Male : 1995 Arrival Date: 06/18/2020 Time: 22:06 Bed 7 Private MD: Diagnosis: Dehydration;Vomiting;Hyperglycemia, unspecified Presentation: 06/18 22:20 Chief complaint: Patient states: This morning, I woke up with high blood sugar, sg readings in the 500's, took my insulin, about 12 units and was going to eat a peanut butter sandwich when I fell asleep and didn't eat. About 1999 i checked my sugar it was 400 something, I took about 8 more units insulin, No FSBG post insulin reported, just came to the ED to get evaluated. Coronavirus screen: Client denies travel out of the [place] in the last 14 days. At this time, the client does not indicate any symptoms associated with coronavirus-19. Ebola Screen: Patient negative for fever greater than or equal to 101.5 degrees Fahrenheit, and additional compatible Ebola Virus Disease symptoms Patient denies exposure to infectious person. Patient denies travel to an Ebola-affected area in the 21 days before illness onset. No symptoms or risks identified at this time. Initial Sepsis Screen: Does the patient meet any 2 criteria? HR > 90 bpm. Does the patient have a suspected source of infection? No. Patient's initial sepsis screen is negative. Risk Assessment: Do you want to hurt yourself or someone else? Patient reports no desire to harm self or others. Onset of symptoms was June 18, 2020. Care prior to arrival: None. Transition of care: patient was not received from another setting of care. 22:20 Acuity: JACLYN 3 sg 22:20 Method Of Arrival: Ambulatory sg Historical: - Allergies: 22:23 No Known Allergies; sg - Home Meds: 22:23 Lantus 100 unit/mL Sub-Q soln 30 units at bedtime [Active]; Novolog 100 unit/mL Sub-Q sg soln 10 to 15 unites before meals [Active]; - PMHx: 22:23 Diabetes - IDDM; sg - PSHx: 22:23 None; sg - Immunization history:: Adult Immunizations up to date. - Social history:: Smoking status: Patient denies any tobacco usage or history of. Screenin:42 Abuse screen: Denies threats or abuse. Nutritional screening: No deficits noted. ea Tuberculosis screening: No symptoms or risk factors identified. Fall Risk IV access (20 points). Assessment: 22:41 General: Appears in no apparent distress. Behavior is calm, cooperative, appropriate ea for age. Pain: Complains of pain in abdomen. Neuro: Level of Consciousness is awake, alert, obeys commands, Oriented to person, place, time, situation. Cardiovascular: Patient's skin is warm and dry. Respiratory: Airway is patent Respiratory effort is even, unlabored. Derm: Skin is dry, Skin is pale, Skin temperature is warm. 23:10 Reassessment: Patient and/or family updated on plan of care and expected duration. Pain ea level reassessed. Patient is alert, oriented x 3, equal unlabored respirations, skin warm/dry/pink. 06/19 00:00 Reassessment: Patient and/or family updated on plan of care and expected duration. Pain ea level reassessed. Patient is alert, oriented x 3, equal unlabored respirations, skin warm/dry/pink. 01:00 Reassessment: Patient and/or family updated on plan of care and expected duration. Pain ea level reassessed. Patient is alert, oriented x 3, equal unlabored respirations, skin warm/dry/pink. 02:00 Reassessment: Patient and/or family updated on plan of care and expected duration. Pain ea level reassessed. Patient is alert, oriented x 3, equal unlabored respirations, skin warm/dry/pink. 02:30 Reassessment: Pt complaining of nausea, provider notified, order obtained for zofran 4 ea mg, medication administered tolerating well. 03:00 Reassessment: Patient and/or family updated on plan of care and expected duration. Pain ea level reassessed. Patient is alert, oriented x 3, equal unlabored respirations, skin warm/dry/pink. Pt admitted to second floor, tolerating well. Vital Signs: 06/18 22:20 Weight 52.16 kg (R); Height 5 ft. 6 in. (167.64 cm) (R); sg 22:35 BP 107 / 72; Pulse 128; Resp 19; Temp 98.3; Pulse Ox 99% on R/A; ea 23:12 BP 110 / 63; Pulse 118; Resp 18; Pulse Ox 99% ; ea 06/19 00:00 BP 106 / 62; Pulse 105; Resp 18; Pulse Ox 99% ; ea 01:00 BP 109 / 63; Pulse 103; Resp 19; Pulse Ox 99% ; ea 02:38 BP 104 / 57; Pulse 102; Resp 18; Temp 98.2; Pulse Ox 98% ; ea 06/18 22:20 Body Mass Index 18.56 (52.16 kg, 167.64 cm) ED Course: 06/18 22:06 Patient arrived in ED. fj1 22:15 Bam Tian PA is PHCP. jmm 22:15 Matthew Zepeda MD is Attending Physician. jmedgardo 22:20 Ghazal Chamorro RN is Primary Nurse. ea 22:20 Arm band placed on. EKG completed in triage. Results shown to MD. sg 22:22 Triage completed. sg 22:35 Inserted saline lock: 20 gauge in right wrist, using aseptic technique. Blood collected.jd3 22:42 Patient has correct armband on for positive identification. Bed in low position. Call ea light in reach. 06/19 00:48 Víctor Crisostomo is Hospitalizing Provider. [facility] 02:40 No provider procedures requiring assistance completed. Patient admitted, IV remains in ea place. Administered Medications: 06/18 22:35 Drug: NS 0.9% 2000 ml Route: IV; Rate: 1 bolus; Site: right wrist; jd3 08 00:30 Follow up: Response: No adverse reaction; IV Status: Completed infusion; IV Intake: ea 2000ml 06/18 23:05 Drug: Zofran (Ondansetron) 4 mg Route: IVP; Site: right wrist; ea 06/19 00:00 Follow up: Response: No adverse reaction ea 06/18 23:11 Drug: GI Cocktail without - (Maalox Suspension 30 ml, Lidocaine Liquid 2 % 15 ea ml) Route: PO; 06/19 00:00 Follow up: Response: No adverse reaction ea 01:05 Drug: NS 0.9% 1000 ml Route: IV; Rate: 1 bolus; Site: right antecubital; ea 02:42 Follow up: Response: No adverse reaction; IV Status: Completed infusion; IV Intake: ea 1000ml 01:28 Drug: morphine 4 mg Route: IVP; Site: right wrist; ea 02:42 Follow up: Response: No adverse reaction; Pain is decreased; RASS: Restless (+1) ea Intake: 00:30 IV: 2000ml; Total: 2000ml. ea 02:42 IV: 1000ml; Total: 3000ml. ea Outcome: 00:49 Decision to Hospitalize by Provider. rosalba 02:40 Admitted to Med/surg accompanied by tech, room 213, with chart, Report called to ea Receiving nurse on second floor 02:40 Condition: stable 02:40 Instructed on the need for admit, Demonstrated understanding of instructions. 03:00 Patient left the ED. jjossy Signatures: Reinaldo Garvin, RN Bam Nolasco PA PA jmm Antunez, Elena, RN RN ea Davies, Jonathon, RN RN jd3 James, Frank fj1 Corrections: (The following items were deleted from the chart) 06/18 22:44 22:44 Inserted saline lock: 20 gauge in right wrist, using aseptic technique. Blood jjossy collected. steven 23:05 22:35 BP 107 / 72; Pulse 128bpm; Resp 99bpm; Pulse Ox 99% RA; Temp 98.3F; ea jessica 06/19 02:45 06/18 22:20 Coronavirus screen: Client denies travel out of the [place] in the last 14 days. sg
[2020-06-19] MEDS ORDERED: NA CHLORIDE 0.9% 1,000 ML ONE ×2 (00:56→08:47)
[2020-06-19 00:58] LABS: Urine Blood NEGATIVE (NEG); Urine Glucose 1+ (NEG); Urine Protein TRACE (NEG); Urine Specific Gravity >1.030 (1.005-1.030); Urine pH 5.5 (5.0-7.0)
--- NOTE | 2020-06-19 01:25 | P.HP ---
Certification for Inpatient Patient admitted to: Observation With expected LOS: <2 Midnights Practitioner: I am a practitioner with admitting privileges, knowledge of patient current condition, hospital course, and medical plan of care. Services: Services provided to patient in accordance with Admission requirements found in Title 42 Section 412.3 of the Code of Federal Regulations Patient History Date of Service: 06/19/20 Reason for admission: Nausea and vomiting History of Present Illness: 24-year-old gentleman with a history of DM type 1 presented emergency department with a complaint of nausea and vomiting of onset yesterday no morning. He reports vomiting several times, vomit is nonbloody. Patient also reports abdominal pain which he attributes to excessive vomiting. He denied any fever. He endorsed diarrhea which per patient has been chronic. He stated his blood sugar read high and gave himself short-acting insulin before presenting to the ED. His blood glucose level 203 in the ED. CBC shows leukocytosis. BMP shows mild metabolic acidosis. UA reports 4+ ketones. Patient is placed under observation for further management. Allergies No Known Allergies Allergy (Verified 07/27/19 15:03) Home Medications: Insulin Aspart [Novolog Flexpen] 10 - 15 units SQ TIDWM 11/12/18 Insulin Glargine Human [Lantus*] 25 unit SQ BEDTIME 11/12/18 Aspirin [Aspirin EC 81 MG] 81 mg PO DAILY #30 tablet. 11/13/18 Atorvastatin Calcium [Lipitor] 40 mg PO BEDTIME #30 tab 11/13/18 lisinopriL [Lisinopril] 5 mg PO DAILY #30 tablet 11/13/18 - Past Medical/Surgical History Diabetic: Yes -: Diabetes mellitus type 1 -: History of DKA -: History of PVCs -: abscess left forearm -: broke wrist -: Wrist surgery Psychosocial/ Personal History: The patient is single. He has no child. He works at a local [employer]. - Family History Mother -: Other (see notes) Notes: Thyroid; Migraines - Social History Smoking Status: Never smoker Alcohol use: Yes CD- Drugs: No Caffeine use: Yes Review of Systems Other: Except as documented, all other systems reviewed and negative. Physical Examination - Physical Exam General: Alert, In no apparent distress, Other (Underweight) HEENT: Atraumatic, PERRLA, Mucous membr. moist/pink, Sclerae nonicteric Neck: Supple, JVD not distended Respiratory: Clear to auscultation bilaterally, Normal air movement Cardiovascular: No edema, Normal S1 S2, Other (Tachycardia) Capillary refill: <2 Seconds Gastrointestinal: Normal bowel sounds, Soft and benign, No masses, Tenderness (Mild diffuse tenderness) Musculoskeletal: No swelling, No erythema Integumentary: No rashes Neurological: Normal strength at 5/5 x4 extr, Cranial nerves 3-12 intact - Studies Laboratory Data (last 24 hrs) 06/18/20 22:58: Sodium 140, Potassium 4.4, BUN 23 H, Creatinine 1.16, Glucose 230 H, Total Bilirubin 1.2 H, AST 39 H, ALT 74, Alkaline Phosphatase 104, Lipase 29 L 06/18/20 22:30: WBC 18.2 H, Hgb 15.1, Hct 44.7, Plt Count 295 Assessment and Plan - Problems (Diagnosis) (1) Diabetes mellitus with hyperglycemia Current Visit: Yes Status: Acute (2) Dehydration Onset Date: 12/19/17 Current Visit: No Status: Acute (3) Nausea & vomiting Onset Date: 12/19/17 Current Visit: No Status: Acute (4) Leukocytosis Current Visit: Yes Status: Acute - Plan Place under observation. Rehydrate with IV NS. Glucose management with Lantus insulin and aggressive insulin sliding scale. Monitor blood chemistry to follow metabolic acidosis. Monitor CBC Follow CT abdomen and pelvis result. - Advance Directives Does patient have a Living Will: No Does patient have a Durable POA for Healthcare: No
[2020-06-19] MEDS ORDERED: MORPHINE 4 MG/ML SYR ONE (01:35)
[2020-06-19] MEDS ORDERED: ONDANSETRON 4 MG/2 ML VIAL ONE (03:02)
[2020-06-19 03:14] VITALS: O2SAT 98
[2020-06-19] MEDS ORDERED: MORPHINE 2 MG/ML SYR IV PRN (03:31)
[2020-06-19] MEDS ORDERED: ONDANSETRON 4 MG/2 ML VIAL IV PRN (03:31)
[2020-06-19] MEDS ORDERED: NA CHLORIDE 0.9% 1,000 ML IV SCH (03:31)
[2020-06-19 04:05] LABS: Urine Appearance CLEAR; Urine Bilirubin NEGATIVE (NEG); Urine Blood NEGATIVE (NEG); Urine Color YELLOW; Urine Glucose 3+ (NEG); Urine Protein NEGATIVE (NEG); Urine Specific Gravity >=1.030 (1.005-1.030); Urine Urobilinogen 0.2 mg/dL (0.2-1.0); Urine pH 5.5 (5.0-7.0)
[2020-06-19 04:06] LABS: Absolute Lymphocytes (CBC) 1.1 K/uL (0.7-4.9); Basophils % 0.4 % (0-1.3); Hematocrit 38.6 % (39.6-49.0); Lymphocytes % 6.8 % (15.3-44.8); MPV 8.8 fL (7.6-11.3); RBC Red Blood Cell Count 4.32 M/uL (4.33-5.43)
[2020-06-19] MEDS: ACETAMINOPHEN 500 MG TAB PO PRN ×2 (04:20→21:20)
[2020-06-19 04:22] LABS: Urine Microscopic Reflex NO UMIC
[2020-06-19 04:28] LABS: Magnesium 1.8 mg/dL (1.8-2.4); Phosphorus 3.5 mg/dL (2.5-4.9); Potassium 4.9 mmol/L (3.5-5.1)
[2020-06-19] MEDS: NA CHLORIDE 0.9% 1,000 ML IV SCH ×2 (06:51→21:37)
[2020-06-19] MEDS ORDERED: INSULIN -REGULAR HUMAN 50 UNIT/0.5 ML ML SQ SCH (07:30)
--- NOTE | 2020-06-19 07:50 | P.PN ---
Date of Service: 06/19/20 Patient's blood sugar increased to 360. Blood chemistry showing increased anion gap. He is complaining of more nausea and abdominal pain. Patient diagnosed with DKA. Transferred to the ICU. Initiate DKA protocol. Start insulin drip Aggressive IV hydration BMP check every 4 hr. Glucose monitoring q.1 hr per DKA protocol Empiric IV Rocephin given leukocytosis.
[2020-06-19] MEDS ORDERED: INSULIN -REGULAR HUMAN 100 UNIT in NA CHLORIDE 0.9% 100 ML IV SCH (08:05)
[2020-06-19] MEDS ORDERED: NA CHLORIDE 0.9% 1,000 ML IV ONE (08:05)
[2020-06-19] MEDS: D5.45NS W/KCL 20MEQ 1,000 ML IV SCH ×3 (08:05→21:25)
[2020-06-19] MEDS ORDERED: ENOXAPARIN 40 MG/0.4 ML SQ SCH (09:00)
[2020-06-19] MEDS ORDERED: CEFTRIAXONE/SWI 1gm 1 GM/10 ML SYR IVP SCH (09:00)
[2020-06-19] MEDS ORDERED: MAGNESIUM SULFATE 1 gm IVPB 1 GM/100 ML BAG IV ONE (09:00)
[2020-06-19 11:01] LABS: Potassium 4.9 mmol/L (3.5-5.1)
[2020-06-19] MEDS ORDERED: D5.45NS W/KCL 20MEQ 1,000 ML IV ONE ×2 (11:39→18:23)
--- NOTE | 2020-06-19 11:45 | RAD REPORT ---
EXAM DESCRIPTION: RAD - Chest Single View - 06/19/2020 12:49 am CLINICAL HISTORY: elevated wbc, chest pain Chest pain. COMPARISON: Chest Pa And Lat (2 Views) dated 07/27/2019; Chest Single View dated 06/24/2018; Chest Sin gle View dated 12/18/2017; CHEST SINGLE VIEW dated 12/25/2015 FINDINGS: Portable technique limits examination quality. The lungs are grossly clear. The heart is normal in size. No displaced fractures. IMPRESSION: No acute intrathoracic process suspected.
[2020-06-19 14:36] LABS: Potassium 4.6 mmol/L (3.5-5.1)
[2020-06-19] MEDS ORDERED: MAGNES/ALUMIN/SIMET 30ML UCUP PO ONE (16:02)
[2020-06-19] MEDS: LIDOCAINE VISCOUS 2% SOLN 15 ML UDC PO PRN (16:08)
[2020-06-19] MEDS ORDERED: MAGNE/ALUM HYDROXD 30 ML UCUP ONE (16:17)
[2020-06-19] MEDS ORDERED: LIDOCAINE VISCOUS 2% SOLN 15 ML UDC ONE (16:17)
[2020-06-19 18:19] LABS: Potassium 4.3 mmol/L (3.5-5.1)
[2020-06-19] MEDS ORDERED: GLUCAGON 1 MG/VIAL IM PRN ×2 (19:26→21:30)
[2020-06-19] MEDS ORDERED: D50W 25 GM/50 ML SYRINGE/VIAL IV PRN ×2 (19:26→21:30)
[2020-06-19] MEDS ORDERED: INSULIN GLARGINE 100 UNITS/ML SQ ONE ×2 (19:27→19:52)
[2020-06-20] MEDS ORDERED: D5.45NS W/KCL 20MEQ 1,000 ML IV ONE (00:20)
[2020-06-20] MEDS ORDERED: INSULIN -REGULAR HUMAN 50 UNIT/0.5 ML ML ONE (00:30)
[2020-06-20] MEDS: NA CHLORIDE 0.9% 1,000 ML IV SCH ×2 (01:17→06:13)
[2020-06-20] MEDS: LIDOCAINE VISCOUS 2% SOLN 15 ML UDC PO PRN (02:51)
[2020-06-20 06:53] LABS: Magnesium 1.8 mg/dL (1.8-2.4); Potassium 3.9 mmol/L (3.5-5.1)
[2020-06-20 07:12] LABS: Basophils % 0.4 % (0-1.3); Lymphocytes % 19.8 % (15.3-44.8); MPV 8.6 fL (7.6-11.3); RBC Red Blood Cell Count 3.75 M/uL (4.33-5.43)
[2020-06-20] MEDS ORDERED: INSULIN -REGULAR HUMAN 50 UNIT/0.5 ML ML SQ SCH (07:30)
--- NOTE | 2020-06-20 08:15 | P.DS ---
Admission Date: 06/19/20 Discharge Date: 06/20/20 Primary Care Provider: Dr. Dominguez Disposition: ROUTINE DISCHARGE Discharge Condition: GOOD Reason for Admission: Nausea and vomiting Consultations: none Procedures: CT Scan-Abdomen: No intra-abdominal abnormality noted CXR: FINDINGS: Portable technique limits examination quality. The lungs are grossly clear. The heart is normal in size. No displaced fractures. IMPRESSION: No acute intrathoracic process suspected. Medical Problem List: Nausea, vomiting with dehydration secondary to DKA Diabetes mellitus type 1 with hyperglycemia and noted DKA Possible underlying GERD Brief History of Present Illness: 24 yo CM presented with nausea and vomiting. He has hx of DM Type 1. Initial CT scan of abdomen and pelvis was unremarkable. Blood sugars were elevated. Patient admitted for further evaluation and treatment Hospital Course: Patient presented with nausea, vomiting. Patient with elevated blood sugar. Patient had DKA. Patient required insulin drip. This was stabilized and DKA resolved. The patient has done well. Patient was given antibiotic-Rocephin for suspected infection. No need for antibiotics at this time. Patient also had some dehydration. IV fluids was given. During the course of his stay his condition improved. DKA resolved. Chest x-ray unremarkable. CT scan of the abdomen unremarkable. At discharge patient will continue his current regimen of insulin- Tresiba 22 units sc daily and NovoLog 12 units subcu 3 times a day with meals. Recommend to continue to monitor blood sugars at least twice daily. Recommend to maintain blood sugar less than 140 fasting and less than 200 meals. Recommend follow up with PCP in 1 week to follow up this hospitalization. Patient may benefit with endocrinology evaluation as an outpatient to further monitor and address. Patient may have underlying GERD. At discharge patient may continue with Pepcid 20 mg 1 pill twice daily. If nausea persist then will recommend GI evaluation as an outpatient. Vital Signs/Physical Exam: Temp Pulse Resp BP Pulse Ox 97.6 F 75 18 100/55 L 7 L 06/20/20 04:00 06/20/20 04:00 06/20/20 04:00 06/20/20 04:00 06/20/20 04:00 General: Alert, In no apparent distress, Oriented x3, Cooperative HEENT: Atraumatic Neck: Supple Respiratory: Clear to auscultation bilaterally, Normal air movement Cardiovascular: Normal pulses, Regular rate/rhythm Gastrointestinal: Normal bowel sounds, No tenderness, No masses, No rebound, No guarding Musculoskeletal: No erythema, No tenderness, No warmth Integumentary: No tenderness/swelling, No erythema, No warmth, No cyanosis Neurological: Normal speech, Normal strength at 5/5 x4 extr, Normal tone, Normal affect Laboratory Data at Discharge: WBC 10.0 K/uL (4.3-10.9) D 06/20/20 06:27 Hgb 11.1 g/dL (13.6-17.9) L 06/20/20 06:27 Hct 33.0 % (39.6-49.0) L 06/20/20 06:27 Plt Count 186 K/uL (152-406) D 06/20/20 06:27 Sodium 139 mmol/L (136-145) 06/20/20 06:27 Potassium 3.9 mmol/L (3.5-5.1) 06/20/20 06:27 BUN 11 mg/dL (7-18) 06/20/20 06:27 Creatinine 1.03 mg/dL (0.55-1.3) 06/20/20 06:27 Glucose 204 mg/dL (74-106) H 06/20/20 06:27 Phosphorus 3.5 mg/dL (2.5-4.9) 06/19/20 03:44 Magnesium 1.8 mg/dL (1.8-2.4) 06/20/20 06:27 Total Bilirubin 1.2 mg/dL (0.2-1.0) H 06/18/20 22:58 AST 39 U/L (15-37) H 06/18/20 22:58 ALT 74 U/L (12-78) 06/18/20 22:58 Alkaline Phosphatase 104 U/L (45-117) 06/18/20 22:58 Lipase 29 U/L (73-393) L 06/18/20 22:58 Home Medications: Insulin Aspart [Novolog] 12 units SQ TID 06/19/20 Insulin Degludec [Tresiba] 22 units SQ BEDTIME 06/19/20 Famotidine [Pepcid] 20 mg PO BID #30 tab 06/20/20 New Medications: Famotidine [Pepcid] 20 mg PO BID #30 tab Patient Discharge Instructions: 1. Patient to follow up with PCP in one week to follow up hospitalization. 2. Patient presented with nausea, vomiting. Patient with elevated blood sugar. Patient had DKA. Patient required insulin drip. This was stabilized and DKA resolved. The patient has done well. Patient was given antibiotic-Rocephin for suspected infection. No need for antibiotics at this time. Patient also had some dehydration. IV fluids was given. During the course of his stay his condition improved. DKA resolved. Chest x-ray unremarkable. CT scan of the abdomen unremarkable. At discharge patient will continue his current regimen of insulin- Tresiba 22 units sc daily and NovoLog 12 units subcu 3 times a day with meals. Recommend to continue to monitor blood sugars at least twice daily. Recommend to maintain blood sugar less than 140 fasting and less than 200 meals. Recommend follow up with PCP in 1 week to follow up this hospitalization. Patient may benefit with endocrinology evaluation as an outpatient to further monitor and address. 3. Patient may have underlying GERD. At discharge patient may continue with Pepcid 20 mg 1 pill twice daily. If nausea persist then will recommend GI evaluation as an outpatient. Diet: ADA Activity: Ad sherley Time spent managing pt's care (in minutes): 55
[2020-06-20] MEDS ORDERED: MAGNESIUM SULFATE 1 gm IVPB 1 GM/100 ML BAG IV ONE (09:00)
[2020-06-20] MEDS ORDERED: POTASSIUM CL SA 10 MEQ TAB PO ONE (09:00)
--- NOTE | 2020-06-20 12:27 | RAD REPORT ---
EXAM DESCRIPTION: Abdomen Pelvis W Contrast CLINICAL HISTORY: 24 years Male ABD PAIN COMPARISON: None. TECHNIQUE: Contiguous axial images obtained through the abdomen and pelvis following IV contrast. Re formatted images obtained. This exam was performed according to our department optimization program which includes automated exp osure control, adjustment of the mA and/or kv according to patient size and/or use of iterative recon struction technique. FINDINGS: There is a calcified granuloma in the right lower lung. The liver appears unremarkable. The spleen and pancreas appear unremarkable. No adrenal masses. The kidneys appear unremarkable. No hydronephrosis. The gallbladder is visualized. No aneurysmal dilatation of the aorta. No bowel obstruction. The appendix appears unremarkable. No significant free pelvic fluid. IMPRESSION: No acute intra-abdominal abnormality is identified. Electronically signed by: Jhoan Mosqueda MD 06/19/2020 12:57 AM CDT Due to temporary technical issues with the PACS/Fluency reporting system, reports are being signed by the in house radiologist without review as a courtesy to ensure prompt reporting. The interpreting r adiologist is fully responsible for the content of the report.
[2020-06-20 12:51] VITALS: BP 106/52; TEMP 97.8; BMI 18.6
[2020-06-21] MEDS ORDERED: PANTOPRAZOLE 40MG TABLET PO SCH (06:30)
== END 2020-06-20 13:37 | disposition home or self-care (01) | DRG 639 ==
LOC: ER 22:05 → ERHOLD 06-19 02:40 → 2ND 06-19 02:42 → OBSVTOIN 06-19 08:39 → ERHOLD 06-19 08:50 → 2ND 06-20 02:35
PROVIDERS: ADMIT Internal Medicine; ATTEND Family Medicine
DX: E10.10 Type 1 diabetes mellitus with ketoacidosis without coma (principal); E86.0 Dehydration; K21.9 Gastro-esophageal reflux disease without esophagitis; D72.829 Elevated white blood cell count, unspecified; Z79.4 Long term (current) use of insulin; Z79.82 Long term (current) use of aspirin; Z79.899 Other long term (current) drug therapy; Z11.59 Encounter for screening for other viral diseases
CPT/HCPCS: 36415; 71045; 74177; 80048; 80076; 81003; 82805; 82947; 83690; 83735; 84100; 84484; 85025; 87070; 87081; 87804; 93005; 96361; 96374; 96375; 99285; G0378; J0696; J1650; J1815; J2270; J2405; J3475; J7030; Q9967; U0002